=== PATIENT | male | born 1975 | race African-American/Black ===

== ENCOUNTER 2021-03-15 20:56 | Emergency (ER) | payer MEDICARE, MEDICAID, SELFPAY ==
--- NOTE | ~2021-03-15 | XR_ITS ---
EXAMINATION: XR HAND, LEFT CLINICAL INFORMATION: Left hand swelling and bruising. COMPARISON: None TECHNIQUE: PA, lateral, and oblique views of the left hand. FINDINGS: Mildly displaced, oblique fracture through the distal aspect of the 5th metacarpal. The fracture line contacts the dorsal aspect of the metacarpophalangeal articular surface. There is approximately 0.6 cm proximal displacement of the distal fracture fragment. No dislocation. Osteopenia. Mild joint space narrowing with tiny marginal osteophytes at the triscaphe and 1st carpometacarpal joints as well as scattered throughout the interphalangeal joints. No osseous erosion. XR/XR hand LT 2V IMPRESSION: Mildly displaced, oblique fracture through the 5th metacarpal head which contacts the metacarpophalangeal articular surface.
[2021-03-15 21:15] VITALS: BP 150/77; PULSE 88; RESP 17; TEMP 37.1; O2SAT 98; BMI 40.4
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
[2021-03-16] MEDS: Ibuprofen 800 MG TABLET PO (00:27)
[2021-03-16 01:06] VITALS: BP 138/91; PULSE 79; RESP 16; O2SAT 97
== END 2021-03-16 01:08 | disposition home or self-care (01) ==
PROVIDERS: Emergency Provider Student in an Organized Health Care Education/Training Program
DX: S62.307A Unspecified fracture of fifth metacarpal bone, left hand, initial encounter for closed fracture (principal); W23.1XXA Caught, crushed, jammed, or pinched between stationary objects, initial encounter; Y93.89 Activity, other specified; Y92.9 Unspecified place or not applicable; Y99.9 Unspecified external cause status
CPT/HCPCS: 29125; 29515; 73120; 99284

== ENCOUNTER → 2021-03-18 08:28 | Outpatient (BNVA) | payer MEDICARE, MEDICAID, SELFPAY | PROVIDERS: Visit Provider Physician Assistant | DX: S62.307A Unspecified fracture of fifth metacarpal bone, left hand, initial encounter for closed fracture (principal) | CPT/HCPCS: 99202 ==

== ENCOUNTER 2021-03-19 08:50 | Day surgery (SDC) | payer MEDICARE, MEDICAID, SELFPAY ==
--- NOTE | 2021-03-18 13:06 | P.CONAN_ITS ---
Documented by User: Radha Chowdhury NP 03/18/21 13:06 HPI - Anesthesia Eval Consult details Narrative: 45yo M for Left Closed vs open Reduction 5th finger metacarpal PMFSH Active Problems Active Problems: All Active Problems (Updated 03/18/21 @ 09:03 by Darin Luna PA-C) Fracture of fifth metacarpal bone of left hand (Acute) Past Medical History Medical History (Updated 03/19/21 @ 11:34 by Ray Fan MD) Asthma Morbid obesity Social History Social History (Updated 03/18/21 @ 08:39 by Boby Blanchard) Patient Tobacco Use Status: Never used Tobacco Substance Use Frequency: Occasionally Are you DNR?: No Advance Directives: No Advance Directives Information Provided: Yes Current occupational status: employed Current occupation: [employer] Meds Allergies Allergy/AdvReac Type Severity Reaction Status Date / Time No Known Allergies Allergy Verified 03/18/21 08:45 Exam Exam Date and Time: March 18, 2021 1306 Assessment and Plan Assessment Anesthesia Assessment: Chart Reviewed Documented by User: Ray Fan MD 03/19/21 11:35 PMFSH Past Medical History Medical History (Updated 03/19/21 @ 11:34 by Ray Fan MD) Asthma Morbid obesity Family History Family history of problems with anesthesia: No Surgical History History of Problems with Anesthesia: No Social History Social History (Updated 03/18/21 @ 08:39 by Boby Blanchard) Patient Tobacco Use Status: Never used Tobacco Substance Use Frequency: Occasionally Are you DNR?: No Advance Directives: No Advance Directives Information Provided: Yes Current occupational status: employed Current occupation: [employer] handed/[employer] Meds Allergies Allergy/AdvReac Type Severity Reaction Status Date / Time No Known Allergies Allergy Verified 03/18/21 08:45 Exam Airway Mallampati Class: III TM Dist: >3cm Neck ROM: Full Loose/Missing/Broken Teeth: Yes Assessment and Plan Assessment Anesthesia Assessment: Anesthesia Plan Discussed Final Anesthetic Review Family History of Problems with Anesthesia: No History of Problems with Anesthesia: No NPO: Yes ASA Class: III Final Preanesthetic Review: No Changes in Pt Med Stat, Meds/Allgs Chart Reviewed, Consent Obtained/Reviewed and Anes Risks/Benef Reviewed Patient Risk: High Procedure Risk: Low Anesthetic Plan Anesthetic Plan: GA Disposition: Standard PACU
[2021-03-19] VITALS (8 sets, daily range): BP systolic 126–158; BP diastolic 80–98; PULSE 86–93; RESP 16–20; TEMP 36.4–36.6; O2SAT 93–100; BMI 40.4
--- NOTE | ~2021-03-19 | FL_ITS ---
EXAMINATION: XR FLUOROSCOPY WITH IMAGES CLINICAL INFORMATION: Fracture. COMPARISON: Previous x-ray of the left hand 03/15/2021, TECHNIQUE: Fluoroscopy performed by Noreen Franco. Fluoroscopy time: 95 seconds DAP: [id number] uGycm2 Images: 10 FINDINGS: Fluoroscopy images demonstrate 2 K wires or pins across the left 5th MCP joint and across the 4th and 5th metacarpal heads. There is improved alignment of the displaced fracture of the left 5th metacarpal head. FL/FL guidance in OR IMPRESSION: Fluoroscopy guidance for ORIF of left 5th metacarpal fracture.
[2021-03-19] MEDS: Lactated Ringers 1,000 ML 100 ML IVCONT (09:40)
--- NOTE | 2021-03-19 10:09 | P.OP_ITS ---
Operative Note Operative Note Date of Service: 03/19/21 Narrative: Operative Note Narrative: Preop diagnosis: 1. left 5th Metacarpal head fracture Postop diagnosis: Same Procedure: 1. left 5th Metacarpal head fracture open reduction internal fixation 2. Ulnar nerve block Surgeon: Noreen Franco MD Anesthesia: General Findings: longitudinally oriented fracture through the left 5th metacarpal head and neck with proximal migration. Implants: 0.062 K-wires times Two Tourniquet time: None EBL: Minimal Specimen: None Drains: None Complications: None Disposition: Brought to the recovery room in stable condition Plan: Follow-up in 10-14 days for a wound check, postop radiographs and for placement in a short-arm Finger spica cast or splint Anticipate K-wire removal in 5 weeks based on interval bony healing Educate the patient that full fracture healing anticipated in approximately 8-12 weeks. Indications: The patient is 45 years old with left 5th metacarpal head fracture in the left upper extremity that has already sustained nerve injury and trauma to the ulnar aspect of the forearm from an old injury with incomplete use of the small finger. . The risks and benefits of operative treatment, including but not limited to risk of damage to blood vessels, nerves, tendons, infection, recurrence, delayed or nonunion of fracture, persistent pain or numbness, incomplete resolution of preoperative symptoms, or need for further surgery were discussed with the patient and they wished to proceed with surgery. Procedure: Once consent was obtained patient was brought back to the operating suite and placed in the operating table in a supine position. . Perioperative antibiotics and general anesthesia was administered by the anesthesia team. A tourniquet was applied to the proximal aspect of the left upper extremity and the limb was prepped and draped in a standard surgical fashion. the FluoroScan was used throughout our case to assess our fracture reduction and placement of all implants. We attempted a closed reduction, but were unable to mobilize the fracture to an appropriate position. We thus made the decision to proceed with an open reduction internal fixation. The limb was elevated and exsanguinated with an Esmarch bandage the tourniquet inflated to 250 mmHg for a total tourniquet time of 29 minutes. The FluoroScan was used during the case to assist with our fracture reduction and placement of all implants. A 2.5 cm Dorsal longitudinal incision was made over the distal aspect of the patient's left 5th metacarpal. The incision was made through the skin to the subcutaneous tissues using a 15. Blade. I then dissected down to the fracture site using tenotomy scissors and passing just radial to the extensor tendons to the small finger. [place] elevator was used to free up the longitudinal fracture which was passing through the 5th metacarpal head and neck. I placed a 0.062 K-wire retrograde through the head of the 5th metacarpal extending proximally To the fracture site. I then performed an open reduction of our fracture and advanced the K-wire retrograde across the fracture site and securing it through the ulnar cortex of the 5th metacarpal shaft. We had a near anatomic reduction with good compression at the fracture site.. I then passed a 0.045 K-wire transversely through the ulnar head of the 5th metacarpal, across the fracture site and into the head of the 4th metacarpal. Fracture alignment was assessed for both angular and rotational malalignment. Once satisfied with our fracture reduction and implant placement, the K-wires were bent and cut short and pin caps applied. Final fluoroscopic images were then obtained. The wounds were copiously irrigated with normal saline. An ulnar nerve block was then performed by infiltrating about the ulnar nerve at the wrist with some 1% lidocaine with epinephrine for postop pain control. A Sterile dressing and short arm volar splint was applied. The patient appears to have tolerated the procedure well and with no complications. All digits were well vascularized at the conclusion of the case.
--- NOTE | 2021-03-19 10:09 | MHC.SHP ---
Pre-Procedural Eval Section A Date of Service: 03/19/21 The patient is an INPATIENT: No Changes since office visit: No Cold of Flu in the past 2 weeks, No New Medical Problems, No Changes in Medication and No Patient answered all questions The History & Physical has been completed within 30 days and I have reviewed it.: Yes Section B Chief Complaint: fx of fifth metacarpal Allergies: Allergies Allergy/AdvReac Type Severity Reaction Status Date / Time No Known Allergies Allergy Verified 03/18/21 08:45 Plan I have reviewed the history and physical and performed a pertinent physical examination on my patient. No changes have occurred unless specified.
[2021-03-19] MEDS: oxyCODONE HCl Immed Release 5 MG TABLET PO (13:35)
[2021-03-19] MEDS: Ketorolac Tromethamine 30 MG/ML VIAL IVPUSH (13:35)
== END 2021-03-19 14:36 ==
LOC: HO.SSS 08:50
PROVIDERS: Visit Provider Orthopaedic Surgery
PROC: (CPT 26615; principal; 2021-03-19 10:40)
DX: S62.397A Other fracture of fifth metacarpal bone, left hand, initial encounter for closed fracture (principal); W23.0XXA Caught, crushed, jammed, or pinched between moving objects, initial encounter; Y93.9 Activity, unspecified; Y92.9 Unspecified place or not applicable; Y99.8 Other external cause status; J45.909 Unspecified asthma, uncomplicated
CPT/HCPCS: 26615 ×2; J0690; J1100; J1885; J2250; J2405; J3010

== ENCOUNTER 2021-03-30 08:50 | Outpatient (REF) | payer MEDICARE, MEDICAID, SELFPAY ==
--- NOTE | ~2021-03-30 | XR_ITS ---
EXAMINATION: XR HAND, LEFT CLINICAL INFORMATION: Pain in the left hand. COMPARISON: X-rays of the left hand 03/15/2021. Intraoperative imaging 03/19/2021 TECHNIQUE: 4 views of the left hand. FINDINGS: There are 2 pinsdistal 5th metacarpal where there is an oblique mildly displaced fracture. The distal pin appears more distally positioned when compared with the intraoperative images. There is perhaps slight improvement in alignment compared with the preoperative examination but unchanged compared with the intraoperative imaging. The distal fragment is mildly displaced radially approximately 3 mm. ADDITIONAL FINDINGS: Mild osteoarthritis of the 1st carpometacarpal joint and distal radioulnar joint manifested by marginal osteophytes. XR/XR hand LT min 3V IMPRESSION: 1. No change in the position of the fracture the distal 5th metacarpal when compared with intraoperative imaging obtained. 2. Of note the more distal pin appears MORE DISTALLY POSITIONED just distal to the level of fracture when compared with the intraoperative imaging. I'm not certain whether not this change in position occurred after the intraoperative imaging was performed or whether the pain has moved distally after surgery. Correlate with clinical presentation and surgical operative findings.
== END 2021-03-30 08:51 | disposition home or self-care (01) ==
LOC: HO.HOSX 08:50
PROVIDERS: Visit Provider Physician Assistant
DX: S62.307D Unspecified fracture of fifth metacarpal bone, left hand, subsequent encounter for fracture with routine healing (principal)
CPT/HCPCS: 29085; 73130; 99212

== ENCOUNTER 2021-04-08 08:37 | Outpatient (REF) | payer MEDICARE, MEDICAID, SELFPAY ==
--- NOTE | ~2021-04-08 | XR_ITS ---
EXAMINATION: XR HAND, LEFT CLINICAL INFORMATION: Pain in left hand. COMPARISON: Left hand radiographs 03/30/2021. TECHNIQUE: AP, oblique, lateral, repeat lateral, close cyst lateral radiographs of the left hand. FINDINGS: A mildly displaced oblique fracture of the fifth metatarsal carpal distal metadiaphysis with minimal radial angulation is identified with a single K wire spanning the heads of the fourth and fifth carpals. Mild subchondral sclerosis and joint space narrowing of the first carpometacarpal joint is again noted. Osteopenia of the fourth and fifth metacarpal rays is noted and may represent disuse osteopenia. The fracture lines associated with the fifth metacarpal fracture noted above remain distinct. XR/XR hand LT min 3V IMPRESSION: *Mildly displaced fracture of the distal fifth metacarpal with internal fixation unchanged in alignment compared with 03/30/2021. *Mild osteoarthritis of the first carpometacarpal joint.
== END 2021-04-08 08:38 | disposition home or self-care (01) ==
LOC: HO.HOSX 08:37
PROVIDERS: Visit Provider Orthopaedic Surgery
DX: S62.307D Unspecified fracture of fifth metacarpal bone, left hand, subsequent encounter for fracture with routine healing (principal)
CPT/HCPCS: 73130; 99212

== ENCOUNTER 2021-04-22 08:38 | Outpatient (REF) | payer MEDICARE, MEDICAID, SELFPAY ==
--- NOTE | ~2021-04-22 | XR_ITS ---
EXAMINATION: XR HAND, LEFT CLINICAL INFORMATION: Fracture fifth metacarpal. Follow-up. COMPARISON: Radiographs left hand 04/08/2021, 03/30/2021 TECHNIQUE: Left hand is imaged in 3 views. FINDINGS: The oblique fracture head and neck fifth metacarpal is reduced with orthopedic fixation pin. Hardware is intact. Fracture fragments are unchanged in alignment from prior study. Fracture line still visible. There is no destructive process. No dislocation. Remainder of bony structures are unremarkable. XR/XR hand LT min 3V IMPRESSION: No change in alignment. Hardware intact.
== END 2021-04-22 08:39 | disposition home or self-care (01) ==
LOC: HO.HOSX 08:38
PROVIDERS: Visit Provider Orthopaedic Surgery
DX: S62.307D Unspecified fracture of fifth metacarpal bone, left hand, subsequent encounter for fracture with routine healing (principal); T78.40XD Allergy, unspecified, subsequent encounter
CPT/HCPCS: 73130; 99212

== ENCOUNTER 2021-05-05 14:53 | Outpatient (REF) | payer MEDICARE, MEDICAID, SELFPAY ==
[2021-05-05 15:47] LABS: Binax Internal Control QC Valid; Binax Now Covid-19 Ag Negative (Negative)
== END 2021-05-05 14:54 | disposition home or self-care (01) ==
LOC: HO.LAB 14:53
PROVIDERS: Visit Provider Internal Medicine
DX: Z13.89 Encounter for screening for other disorder (principal)

== ENCOUNTER 2021-06-08 13:48 | Outpatient (RCR) | payer MEDICARE, MEDICAID, SELFPAY ==
--- NOTE | 2021-06-22 14:50 | MHC.OT.OD ---
[address] [phone] F: [phone] Occupational Therapy Daily Note Date of Evaluation: 06/08/21 Treatments to Date: 1 No Shows to Date: 3 Assessment: Prashanth was seen for OT evaluation (after missing his initially scheduled eval on 05/11/21). He has no-showed for two appointments since that time. He has follow up w/ Dr Franco tomorrow 06/23/21. We will allow one more visit next week and discharge if he does not attend. He has been educated on digit ROM w/ tendon glides as well as a desensitization program. 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 Pt to report <3/10 pain with functional use Financial Services Representative Strength >60lbs QuickDASH <40 Plan of Care: Cont POC to next week, if he has another no-show, we will discharge from services. Treatment Plan: Therapeutic Exercise Therapeutic Activity Home Exercise Program Splinting Neuro Re-ed Patient Education Desensitization/Sensory Re-ed Edema Control ADL Training Ultrasound Paraffin Fluidotherapy MHP Joint Mobilization Soft Tissue Mobilization Kinesiotaping Treatment Plan Comments: Electronically Signed By: Bonny Sarabia OT/s Reviewed/agree with student documentation: Yes Therapist: Charissa Zepeda OTR/L CHT
--- NOTE | 2021-07-23 08:27 | MHC.OT.DC ---
[address] [phone] F: [phone] Occupational Therapy Discharge Note Provider: Dr Franco Diagnosis: Left D5 MC F Date of Surgery: 03/19/21 Date of Evaluation: 06/08/21 Date of Discharge: 07/23/21 Treatments to Date: 1 No Shows to Date: 3 Discharge Status: Patient Elected to Stop Visit Non-compliance Discharge Summary: Prashanth was seen for OT evaluation and has not returned for therapy since. We will be discharging from services at this time. Electronically Signed By: SEGUNDO Garcia/Rere ERICKSON Reviewed/agree with student documentation: N/A Therapist: SEGUNDO Garcia/Rere ERICKSON Please Sign and return to therapist, thank you for your referral.
== END 2021-07-23 08:28 | disposition home or self-care (01) ==
LOC: HO.OT 13:48
PROVIDERS: Visit Provider Orthopaedic Surgery
DX: S62.307D Unspecified fracture of fifth metacarpal bone, left hand, subsequent encounter for fracture with routine healing (principal); T78.40XD Allergy, unspecified, subsequent encounter
CPT/HCPCS: 97110; 97166

== ENCOUNTER → 2021-06-23 15:30 | Outpatient (BNVA) | payer MEDICARE, MEDICAID, SELFPAY | PROVIDERS: Visit Provider Orthopaedic Surgery | DX: S62.307D Unspecified fracture of fifth metacarpal bone, left hand, subsequent encounter for fracture with routine healing (principal); R68.89 Other general symptoms and signs | CPT/HCPCS: 99212 ==

== ENCOUNTER 2022-05-26 14:08 | Outpatient (REF) | payer MEDICARE, MEDICAID, SELFPAY ==
--- NOTE | ~2022-05-26 | XR_ITS ---
EXAMINATION: XR HAND, LEFT CLINICAL INFORMATION: Pain left fifth metacarpal bone COMPARISON: Previous x-ray most recent April 2021 TECHNIQUE: PA, lateral, and oblique views of the left hand. FINDINGS: Old healed fracture of the neck of the fifth metacarpal bone. Orthopedic hardware has been removed. There is still osteopenia of the left fourth and fifth fingers. No acute fracture or dislocation. Normal joint spaces. Normal soft tissues. XR/XR hand LT min 3V IMPRESSION: Old healed fracture of the neck of the fifth metacarpal bone. Osteopenia of the fourth and fifth fingers.
--- NOTE | ~2022-05-26 | XR_ITS ---
EXAMINATION: BILATERAL KNEE X-RAY CLINICAL INFORMATION: Pain COMPARISON: None TECHNIQUE: 3 views of each knee FINDINGS: Bone alignment is normal. No fracture or dislocation. Normal joint spaces. No joint effusion. XR/XR knee RT 3V IMPRESSION: Normal knees.
--- NOTE | ~2022-05-26 | XR_ITS ---
EXAMINATION: BILATERAL KNEE X-RAY CLINICAL INFORMATION: Pain COMPARISON: None TECHNIQUE: 3 views of each knee FINDINGS: Bone alignment is normal. No fracture or dislocation. Normal joint spaces. No joint effusion. XR/XR knee LT 3V IMPRESSION: Normal knees.
== END 2022-05-26 14:09 | disposition home or self-care (01) ==
LOC: HO.XRAY 14:08
PROVIDERS: PCP General Practice; Visit Provider General Practice
DX: M17.0 Bilateral primary osteoarthritis of knee (principal); M79.642 Pain in left hand
CPT/HCPCS: 73130; 73562

== ENCOUNTER 2022-11-22 11:33 | Outpatient (REF) | payer MEDICARE, MEDICAID, SELFPAY ==
[2022-11-22 13:59] LABS: Estimated Average Glucose 117 mg/dL; Hemoglobin A1C 152.6476 umol/L; Hemoglobin A1c % 5.7 % (<6.0)
== END 2022-11-22 11:34 | disposition home or self-care (01) ==
LOC: HO.HHCL 11:33
PROVIDERS: Visit Provider General Practice
DX: E66.01 Morbid (severe) obesity due to excess calories (principal); R79.9 Abnormal finding of blood chemistry, unspecified; M79.10 Myalgia, unspecified site; T88.6XXA Anaphylactic reaction due to adverse effect of correct drug or medicament properly administered, initial encounter
CPT/HCPCS: 36415; 80053; 80061; 82552; 83036

== ENCOUNTER 2023-11-30 14:43 | Outpatient (REF) | payer MEDICARE, MEDICAID, SELFPAY ==
--- NOTE | ~2023-11-30 | XR_ITS ---
EXAMINATION: XR HAND, LEFT CLINICAL INFORMATION: Pain and swelling of the fifth finger. Hand pain. COMPARISON: Radiographs dated 04/22/2021. TECHNIQUE: PA, lateral, and oblique views of the left hand. FINDINGS: Bones are osteopenic at the ring and small fingers, potentially the results of prior trauma. Chronic regional pain syndrome is also on the differential. No residual fractures are identified in this region. There is a healed fracture at the fifth metacarpal shaft. Kgov-po-cglitywz osteoarthritis at the first CMC joint with nonuniform joint space narrowing and small marginal osteophytes. Minimal osteoarthritis in the MCP joints. Joints otherwise appear relatively well preserved. XR/XR hand LT min 3V IMPRESSION: 1. No acute fracture or malalignment. 2. Healed fifth metacarpal fracture. 3. Osteopenia at the ring and small fingers, is likely related to disuse from prior trauma. Chronic regional pain syndrome is also on the differential. 4. Wlnb-[id number]-aasygntn osteoarthritis at the first CMC joint. Electronically signed by: Christian Vargas MD 12/20/2023 10:45 PM EDT
--- NOTE | ~2023-11-30 | XR_ITS ---
EXAMINATION: XR RIBS, RIGHT CLINICAL INFORMATION: Right rib pain for 3 months, left hand pain and swelling fifth finger, patient had difficulty keeping still for images, body habitus hindered exam, best possible attempts per technologist. COMPARISON: None available. TECHNIQUE: 5 views of the right ribs. FINDINGS: There is no gross pneumothorax. Heart size is normal. No gross pleural effusion. No focal consolidation. No displaced rib fracture is appreciated, although visualization of the most inferior ribs is limited due to overlying bone and soft tissue. XR/XR ribs RT 2V IMPRESSION: No displaced rib fracture is appreciated, although visualization of the most inferior ribs is limited due to overlying bone and soft tissue. CT scan could be considered for better visualization. Electronically signed by: Elsa Martinez MD 12/21/2023 10:26 AM EDT
[2023-11-30 16:31] LABS: Rheumatoid Factor < 13.0 IU/mL (<15.0)
[2023-11-30 16:34] LABS: Alanine Aminotransferase 24 U/L (0-40); Albumin Level 4.4 g/dL (3.5-5.0); Alkaline Phosphatase 115 U/L (39-117); Anion Gap 12 (12-20); Aspartate Amino Transferase 18 U/L (5-37); Bilirubin Total 0.4 mg/dL (0.0-1.0); Blood Urea Nitrogen 13 mg/dL (9-16); Calcium 10.1 mg/dL (8.4-10.2); Carbon Dioxide 27 mmol/L (22-29); Chloride 103 mmol/L (96-108); Cholesterol 178 mg/dL (<200); Estimated Glomerular Filt Rate > 60; Glucose Random 93 mg/dL (60-115); HDL Cholesterol 36 mg/dL (>40); LDL Cholesterol Calculated 106 mg/dL (<100); Sodium 138 mmol/L (135-145); Triglycerides 181 mg/dL (<150)
[2023-11-30 16:53] LABS: Estimated Average Glucose 120 mg/dL; Hemoglobin A1c % 5.8 % (<6.0)
[2023-11-30 16:57] LABS: Erythrocyte Sedimentation Rate 10 MM/HR (0-15)
[2023-12-01 04:26] LABS: HIV AB/AG Nonreactive (Nonreactive); HIV Num 1 0.07 S/CO (0.00-0.99); ~HepC Num1 0.12 S/CO (0.00-0.79); ~Hepatitis C Antibody Nonreactive (Nonreactive)
[2023-12-05 13:10] LABS: Anti Nuclear Antibody Screen NEGATIVE (NEGATIVE)
[2023-12-06 19:44] LABS: RPR Rapid Plasma Reagin NON-REACTIVE (NON-REACTIVE)
== END 2023-11-30 14:44 | disposition home or self-care (01) ==
LOC: HO.HHCL 14:43
PROVIDERS: Visit Provider General Practice
DX: R07.81 Pleurodynia (principal); M79.642 Pain in left hand; E66.01 Morbid (severe) obesity due to excess calories; M25.50 Pain in unspecified joint; R79.9 Abnormal finding of blood chemistry, unspecified; Z11.3 Encounter for screening for infections with a predominantly sexual mode of transmission
CPT/HCPCS: 36415; 71100; 73130; 80053; 80061; 83036; 85652; 86038; 86431; 86592; 86803; 87389

== ENCOUNTER 2024-08-24 10:45 | Outpatient (REF) | payer MEDICARE, MEDICAID, SELFPAY ==
--- NOTE | ~2024-08-24 | XR_ITS ---
EXAMINATION: X-ray knee, bilaterally. CLINICAL INFORMATION: Pain and swelling. History of gout. TECHNIQUE: AP view in standing position both kidneys. Oblique, lateral views both knees. COMPARISON: May 26, 2022. FINDINGS: Mild joint space narrowing involving mostly the medial compartment of the right knee and to lesser extent the left knee. No acute cortical disruption or gross malalignment. No gross suprapatellar bursa joint effusion. Questionable sclerotic marginated 9 mm lucency in the medial aspect proximal metaphysis of the left tibia probably anteriorly based upon the lateral projection. XR/XR Knee Josiah 3V IMPRESSION: Mild medial compartment osteoarthrosis without acute fracture or dislocation. No gross suprapatellar bursa joint effusion Stable sclerotic marginated lucency, proximal metaphysis left tibia.. Electronically signed by: Luis Mauro MD 08/24/2024 12:51 PM EDT
--- OUTSIDE RECORDS SUMMARY | 2024-08-24 10:52 | XMS_ITS | Encounter Summary ---
Author Organization [employer] Address [address] 7[address] [place] [address] Care Team Providers Care Report Checker Name Role Phone Carolyne Alvarado MD Primary Care Provider [phone] Encounter Details Date Type Department Care Team ([facility] st Contact Info) Description 04/19/2024 Orders Only [facility] MED[facility]INE [address] [place], [place] [phone] Carolyne Alvarado MD [address] [place], [place] [phone] Social History Tobacco Use Types Packs/Day Years Used Date Smoking Tobacco: Never Smokeless Tobacco: Never Alcohol Use Standard Drinks/Week Comments Never 0 (1 standard drink = 0.6 oz pur e alcohol) Alcohol Answer Date Recorded Frequency of Alcohol Consumption Not on file 11/30/2023 Average Number of Drinks Not on file 024 Frequency of Binge Drinking Not on file 11/03 Score 0 11/30/2023 Depression Answer Date Recorded Patient Health Questionnaire-9 Score 21 11/30/2023 Patient Health Questionnaire-9 Score 21 11/30/2023 Last PHQ-9: Questionnaire Data Not on file 0 11/30/2023 Housing Stability Answer Date Recorded What is your housing situation today? I have kala méndez 11/30/[address] you li ve. Do you have problems with any of the following? Not on file 11/30/2023 Food Insecurity Answer Date Recorded Within the past 12 months, y ou worried that your food would run out before you got money to buy more: Never True 11/30/2023 Within the past 12 months,th e food you bought just didn't last and you didn't have enough money to get more: Never True Transportation Answer Date Recorded In the past 12 months, has l ack of transportation kept you from medical appts, meetings, work or from getting things needed for daily living? No 11/30/2023 Utilities Answer Date Recorded In the past 12 months, has t he electric, gas, oil or water company threatened to shut off services in your home? No 11/30/2023 Depression Answer Date Recorded Patient Health Questionnaire-2 Score 6 11/30/2023 Internet Access Answer Date Recorded Internet Access Q1 No 12/02/2023 Internet Access Q2 Not on file 12/02/2023 Sex and Gender Information Value Date Recorded Sex Assigned at Male 02/01/2022 10:14 AM EDT Legal Sex Male 10:14 AM EDT Gender Identity Male 02/01/2022 10:14 AM EDT Sexual Orientation Straight 02/01/2022 10 :14 AM EDT documented as of this encounter Plan of Treatment Upcoming Encounters Date Type Department Care Team (Late st Contact Info) Description 09/18/2024 9:30 AM EDT Clinical Support [facility] [address] [place] [phone] Georgia Díaz, SPIKE documented as of this encounter Visit Diagnoses Not on filedocumented in this encounter Additional Health Concerns Assessment Noted Time PHQ-9 Depression Total Score: 21 024 2:06 PM EDT documented as of this encounter Care Teams Report Checker Relationship Specialty Start Date End Date Carolyne Alvarado MD [address] [place] [address] PCP - General Family Medicine 12/03/19 documented as of this encounter
== END 2024-08-24 10:46 | disposition home or self-care (01) ==
LOC: HO.HHCX 10:45
PROVIDERS: Visit Provider General Practice
DX: M25.561 Pain in right knee (principal); M25.562 Pain in left knee
CPT/HCPCS: 73562

== ENCOUNTER → 2024-08-24 10:49 | Outpatient (BNV) | payer MEDICARE, MEDICAID, SELFPAY | PROVIDERS: Visit Provider Radiology Diagnostic Radiology | DX: M25.561 Pain in right knee (principal); M25.562 Pain in left knee; R22.43 Localized swelling, mass and lump, lower limb, bilateral | CPT/HCPCS: 73562 ==

== ENCOUNTER 2024-11-27 10:56 | Outpatient (REF) | payer MEDICARE, MEDICAID, SELFPAY ==
--- OUTSIDE RECORDS SUMMARY | 2024-11-27 10:15 | XMS_ITS | Encounter Summary ---
Author Organization [employer] Address [address] [facility] [address] [place] [address] Care Team Providers Care Dairy Nutrition Specialist Name Role Phone Carolyne Alvarado MD Primary Care Provider [phone] Reason for Visit * Reason Comments Follow-up Encounter Details Date Type Department Care Team ([facility] Contact Info) Description 11/27/2024 10:15 AM EDT Office Visit [facility] MEDICINE [address] [place], [place] [phone] Carolyne Alvarado MD [address] [place], [place] [phone] Vasovagal syncope (Primary Dx); Prediabetes; Anxiety disorder, unspecified type; Rib pain on right side Social History Tobacco Use Types Packs/Day Years Used Date Smoking Tobacco: Never Smokeless Tobacco: Never Alcohol Use Standard Drinks/Week Comments Never 0 (1 standard drink = 0.6 oz pur e alcohol) Alcohol Answer Date Recorded How often do you have a drink containing alcohol ? 1 08/24/2024 How many drinks containing a lcohol do you have on a typical day when you are drinking? 0 08/24/2024 How often do you have six or more drinks on one occasion? 0 08/24/2024 Depression Answer Date Recorded Patient Health Questionnaire-9 Score 11/27/2024 Patient Health Questionnaire-9 Score 11/27/2024 Last PHQ-9: Questionnaire Data Not on file 0 11/27/2024 Housing Stability Answer Date Recorded What is your housing situation today? I have housing today, but I am worried about losing housing in the future 08/16/[address] you li ve. Do you have problems with any of the following? Pests such as bugs, ants, or mice;Mold;Water leaks 08/16/2024 Food Insecurity Answer Date Recorded Within the [...] things needed for daily living? No 11/30/2023 Intimate Partner Violence Answer Date R ecorded Within the last year, have y ou been afraid of your partner or ex-partner? 2 08/24/2024 Within the last year, have y ou been humiliated or emotionally abused in other ways by your partner or ex-partner? 2 Within the last year, have y ou been kicked, hit, slapped, or otherwise physically hurt by your partner or ex-partner? 2 08/24/2024 Within the last year, have y ou been raped or forced to have any kind of sexual activity by your partner or ex-partner? 2 08/24/2024 Utilities Answer Date Recorded In the past 12 months, has t he electric, gas, oil or water company threatened to shut off services in your home? No 11/30/2023 Depression Answer Date Recorded Patient Health Questionnaire-2 Score 6 11/27/2024 Internet Access Answer Date Recorded Internet Access Q1 Yes 08/16/2024 Internet Access Q2 Not on file 08/16/2024 Sex and Gender Information Value Date Recorded Sex Assigned at Male 02/01/2022 10:14 AM EDT Legal Sex Male 10:14 AM EDT Gender Identity Male 02/01/2022 10:14 AM EDT Sexual Orientation Straight 02/01/2022 10 :14 AM EDT documented as of this encounter Last Filed Vital Signs Vital Sign Reading Time Taken Comments Blood Pressure 124/80 11/27/2024 10:31 AM EDT Pulse 85 11/27/2024 10:31 AM EDT Temperature 36.2 C (97.1 F) 11/27/2024 10:31 AM EDT Respiratory Rate 20 11/27/2024 10:31 AM EDT Oxygen Saturation - - Inhaled Oxygen Concentration - - Weight 153 kg (337 lb) 11/27/2024 10:31 AM EDT Height 180.3 cm (5' 11 ) 11/27/2024 10:31 AM EDT Body Mass Index 47 11/27/2024 10:31 AM EDT documented in this encounter Functional Status * Over the past 2 weeks, how often have you been bothered by any of the following problems? Question Answer Date of Assessment Author Patient Health Questionnaire -2 Score 6 11/27/2024 11:23 AM EDT Ana Maria Boothe MA * Little interest or pleasure in doing things Answer Date of Assessment Author Nearly every day 11/27/2024 11:23 AM BUTCHT Ana Maria Boothe MA * Feeling down, depressed, or hopeless Answer Date of Assessment Author Nearly every day 11/27/2024 11:23 AM Ana Maria Sahu MA * Trouble falling or staying asleep, or sleeping too much Answer Date of Assessment Author Nearly every day 11/27/2024 11:23 AM Ana Maria Sahu MA * Feeling tired or having little energy Answer Date of Assessment Author Nearly every day 11/27/2024 11:23 AM Ana Maria Sahu MA * Poor appetite or overeating Answer Date of Assessment Author Nearly every day 11/27/2024 11:23 AM Ana Maria Sahu MA * Feeling bad about yourself - or that you are a failure or have let yourself or your family down Answer Date of Assessment Author More than half the days 11/27/2024 11:23 AM Ana Maria Sahu MA * Trouble concentrating on things, such as reading the newspaper or watching television Answer Date of Assessment Author Nearly every day 11/27/2024 11:23 AM Ana Maria Sahu MA * Moving or speaking so slowly that other people could have noticed? Or the opposite - being so fidgety or restless that you have been moving around a lot more than usual. Answer Date of Assessment Author Nearly every day 11/27/2024 11:23 AM Ana Maria Sahu MA * Thoughts that you would be better off or hurting yourself in some way Answer Date of Assessment Author Not at all 11/27/2024 11:23 AM BUTCHT Ana Maria Boothe MA * Patient Health Questionnaire-9 Score Answer Date of Assessment Author 23 11/27/2024 11:23 AM BUTCHT Ana Maria Boothe MA * Over the last 2 weeks, how often have you been bothered by any of the following problems? Question Answer Date of Assessment Author Feeling nervous, anxious, or on edge 3 11/27/2024 11:23 AM EDT Ana Maria Boothe MA Not being able to stop or co ntrol worrying 3 11/27/2024 11:23 AM BUTCHT Ana Maria Boothe MA Worrying too much about diff erent things 3 11/27/2024 11:23 AM BUTCHT Ana Maria Boothe MA Trouble relaxing 3 11/27/2024 11:23 AM BUTCHT Ana Maria Boothe MA Being so restless that it is hard to sit still 3 11/27/2024 11:23 AM EDT Ana Maria Boothe MA Becoming easily annoyed or irritable 2 11/27/2024 11:23 AM BUTCHT Ana Maria Boothe MA Feeling afraid as if somethi ng awful might happen 3 11/27/2024 11:23 AM BUTCHT Ana Maria Boothe MA RADHA-7 Total Score 20 11/27/2024 11:23 AM Ana Maria Sahu MA documented as of this encounter Plan of Treatment Upcoming Encounters Date Type Department Care Team (Late st Contact Info) Description 12/17/2024 9:00 AM EDT Clinical Support [facility] MEDICINE [address] [place] [phone] Georgia Díaz, RN Scheduled Orders Name Type Priority Associated Diagnoses Orde r Schedule TSH W/Reflex to FT4 Lab Routine Vasovagal syncope Anxiety disorder, unspecified type Expected: 11/27/2024 (Approximate), Expires: 11/27/2025 CBC auto differential Lab Routine Vasovagal syncope Expected: 11/27/2024 (Approximate), Expires: 11/27/2025 Comprehensive Metabolic Panel Lab Routine Vasovagal syncope Expected: 11/27/2024 (Approximate), Expires: 11/27/2025 XR Ribs 2 Views Right Imaging Routine Rib pain on right side Expected: 11/27/2024, Expires: 11/27/2025 documented as of this encounter Procedures Procedure Name Priority Date/Time Associated Diagnosis Comments POCT GLYCATED HEMOGLOBIN, TOTAL Routine 11/27/2024 10:44 AM EDT Prediabetes POCT GLUCOSE Routine 11/27/2024 10:33 AM EDT Prediabetes documented in this encounter Results * (ABNORMAL) POCT HGB A1C (11/27/2024 10:44 AM EDT) Hemoglobin A1C 6.1(A) 4.0 - 5.7 % QC Media Lot # [id number] Lot# Expiration Date 426 Blood 11/27/2024 10:4 4 AM EDT Carolyne Alvarado MD POINT OF CARE TEST ENTER/EDIT ORDERABLES Final Result * POCT Glucose (11/27/2024 10:33 AM EDT) Glucose Blood, POC 185 60 - 200 mg/dL QC Media Lot # [id number] Lot# Expiration Date ,726 Blood Capillary blood specimen / Unknown 11/27/2024 10:33 AM EDT Carolyne Alvarado MD POINT OF CARE TEST ENTER/EDIT ORDERABLES Final Result documented in this encounter Visit Diagnoses Diagnosis Vasovagal syncope- Primary Syncope and collapse Prediabetes Other abnormal glucose Anxiety disorder, unspecified type Rib pain on right side documented in this encounter Additional Health Concerns Assessment Noted Time PHQ-9 Depression Total Score: 23 025 11:23 AM EDT documented as of this encounter Care Teams Dairy Nutrition Specialist Relationship Specialty Start Date End Date Carolyne Alvarado MD [address] [place] [address] PCP - General Family Medicine 12/03/19 documented as of this encounter
--- OUTSIDE RECORDS SUMMARY | 2024-11-27 11:50 | XMS_ITS | Encounter Summary ---
Author Organization [employer] Address [address] [facility] 7t [place] [address] Care Team Providers Care On Site Coordinator Name Role Phone Carolyne Alvarado MD Primary Care Provider [phone] Reason for Visit * Reason Comments Med Refill Encounter Details Date Type Department Care Team (Late st Contact Info) Description 11/15/2022 Refill [facility] [address] [place] [address] [phone] Carolyne Alvarado MD [address] [place] [phone] Mild persistent asthma without complication Social History Tobacco Use Types Packs/Day Years Used Date Smoking Tobacco: Never Smokeless Tobacco: Never Alcohol Use Standard Drinks/Week Comments Never 0 (1 standard drink = 0.6 oz pur e alcohol) PHQ-2 Answer Date Recorded Patient Health Questionnaire-2 Score 6 05/17/2022 Depression Answer Date Recorded Patient Health Questionnaire-9 Score 18 05/17/2022 Sex and Gender Information Value Date Recorded Sex Assigned at Male 02/01/2022 10:14 AM EDT Legal Sex Male 10:14 AM EDT Gender Identity Male 02/01/2022 10:14 AM EDT Sexual Orientation Straight 02/01/2022 10 :14 AM EDT documented as of this encounter Plan of Treatment Upcoming Encounters Date Type Department Care Team (Late Contact Info) Description 12/17/2024 9:00 AM EDT Clinical Support [facility] [address] [place] [address] [phone] Georgia Díaz RN documented as of this encounter Visit Diagnoses Diagnosis Mild persistent asthma without complication documented in this encounter Additional Health Concerns Assessment Noted Time PHQ-9 Depression Total Score: 18 023 11:05 AM EST documented as of this encounter Care Teams On Site Coordinator Relationship Specialty Start Date End Date Carolyne Alvarado MD [address] [place] [address] PCP - General Family Medicine 12/03/19 documented as of this encounter
--- OUTSIDE RECORDS SUMMARY | 2024-11-27 11:50 | XMS_ITS | Encounter Summary ---
Author Organization [employer] Address [address] [facility] 7t [place] [address] Care Team Providers Care Automotive Parts Counter Assistant Name Role Phone Carolyne Alvarado MD Primary Care Provider [phone] Encounter Details Date Type Department Care Team ([facility] st Contact Info) Description 04/19/2024 Orders Only [facility] MEDICINE [address] [place], [place] [phone] Carolyne Alvarado MD [address] [place], [place] [phone] Social History Tobacco Use Types Packs/Day Years [...] Description 12/17/2024 9:00 AM EDT Clinical Support [facility] MEDICINE [address] [place] [phone] Georgia Díaz, RN documented as of this encounter Visit Diagnoses Not on filedocumented in this encounter Additional Health Concerns Assessment Noted Time PHQ-9 Depression Total Score: 21 024 2:06 PM EDT documented as of this encounter Care Teams Automotive Parts Counter Assistant Relationship Specialty Start Date End Date Carolyne Alvarado MD [address] [place] [address] PCP - General Family Medicine 12/03/19 documented as of this encounter
--- OUTSIDE RECORDS SUMMARY | 2024-11-27 11:51 | XMS_ITS | Encounter Summary ---
Author Organization [employer] Address [address] [facility] 7t [place] [address] Care Team Providers Care Pharmacy Aide Name Role Phone Carolyne Alvarado MD Primary Care Provider [phone] Reason for Visit * Reason Onset Date Comments chart prep 11/23/2024 Encounter Details Date Type Department Care Team ([facility] st Contact Info) Description 11/23/2024 Telephone [facility] MEDICINE [address] [place], [place] [phone] Carolyne Alvarado MD [address] [place], [place] [phone] chart prep Social History Tobacco Use Types Packs/Day Years [...] Date Recorded Patient Health Questionnaire-9 Score 18 08/24/2024 Patient Health Questionnaire-9 Score 18 08/24/2024 Last PHQ-9: Questionnaire Data Not on file 0 08/24/2024 Housing Stability Answer Date Recorded What is [...] Date Recorded Patient Health Questionnaire-2 Score 6 08/24/2024 Internet Access Answer Date Recorded Internet Access Q1 Yes 08/16/2024 Internet Access Q2 Not on file 08/16/2024 Sex and Gender Information Value Date Recorded Sex Assigned at Male 02/01/2022 10:14 AM EDT Legal Sex Male 10:14 AM EDT Gender Identity Male 02/01/2022 10:14 AM EDT Sexual Orientation Straight 02/01/2022 10 :14 AM EDT documented as of this encounter Miscellaneous Notes * Telephone Encounter - Suzi Shay MA - 11/23/2024 2:33 PM EDT Chart Prep Labs: not applicable Images: done Referrals: complete Vaccines due: Covid, Flu, Hep B, and Zoster Screenings: colonoscopy Overdue care gaps: A1c, Glucose, SBIRT, PHQ-9, and RADHA-7 documented in this encounter Plan of Treatment Upcoming Encounters Date Type Department Care Team (Late st Contact Info) Description 12/17/2024 9:00 AM EDT Clinical Support [facility] MEDICINE [address] [place] [address] Georgia Díaz, RN documented as of this encounter Visit Diagnoses Not on filedocumented in this encounter Additional Health Concerns Assessment Noted Time PHQ-9 Depression Total Score: 18 025 10:39 AM EDT documented as of this encounter Care Teams Pharmacy Aide Relationship Specialty Start Date End Date Carolyne Alvarado MD [address] [place] [address] PCP - General Family Medicine 12/03/19 documented as of this encounter
--- OUTSIDE RECORDS SUMMARY | 2024-11-27 11:51 | XMS_ITS | Clinical Summary ---
Author Organization [employer] [facility] ity Address [address] [place] [address] Care Team Providers Care Mobile Sales Technician Name Role Phone Unavailable Primary Care Provider Unavailabl e Social History Tobacco Use Types Packs/Day Years Used Date Smoking Tobacco: Never Assessed Sex and Gender Information Value Date Recorded Sex Assigned at Not on file Legal Sex Male 4:33 AM EST Gender Identity Not on file Sexual Orientation Not on file Plan of Treatment Health Maintenance Due Date Last Done Comments DTaP,Tdap,and Td Vaccines (1 - Tdap) 1993 Hepatitis B Vaccines (1 of 3 - 19+ 3-dose series) 1993 COVID-19 Vaccine ( - 2023-2 5 season) 2023 Depression Screening 04/04/2024 Pneumococcal Vaccine: 50+ Ye ars (1 of 1 - PCV) 2024 Zoster Vaccines (1 of 2) 2024 Influenza Vaccine (#1) 2024 HIB Vaccines Aged Out No longer eligi ble based on patient's age to complete this topic HPV Vaccines Aged Out No longer eligi ble based on patient's age to complete this topic Hepatitis A Vaccines Aged Out No long er eligible based on patient's age to complete this topic IPV Vaccines Aged Out No longer eligi ble based on patient's age to complete this topic MMR Vaccines Aged Out No longer eligi ble based on patient's age to complete this topic Meningococcal ACWY Vaccine Aged Out N o longer eligible based on patient's age to complete this topic Meningococcal B Vaccine Aged Out No l onger eligible based on patient's age to complete this topic RSV Immunization Patients Un prema 20 months Aged Out No longer eligible b ased on patient's age to complete this topic Varicella Vaccines Aged Out No longer eligible based on patient's age to complete this topic Advance Directives Documents on File Type Date Recorded Patient Technology Training Associate Expl anation Health Care Decision (hx) 03/03/2019 AD VICTOR DIRECTIVE
--- OUTSIDE RECORDS SUMMARY | 2024-11-27 11:51 | XMS_ITS | Encounter Summary ---
Author Organization [employer] Address [address] [facility] 7t [place] [address] Care Team Providers Care Charge Operator Name Role Phone Carolyne Alvarado MD Primary Care Provider [phone] Encounter Details Date Type Department Care Team (Latest Contact Info) Description 10/03/2018 Abstract [facility] Dental, Provider, DDS Social History Tobacco Use Types Packs/Day Years [...] Description 12/17/2024 9:00 AM EDT Clinical Support [facility] MEDICINE [address] [place] [address] Georgia Díaz RN documented as of this encounter Visit Diagnoses Not on filedocumented in this encounter Care Teams Charge Operator Relationship Specialty Start Date End Date Carolyne Alvarado MD [address] [place] [address] PCP - General Family Medicine 12/03/19 documented as of this encounter
--- OUTSIDE RECORDS SUMMARY | 2024-11-27 11:51 | XMS_ITS | Encounter Summary ---
Author Organization [employer] Address [address] [facility] 7t [place] [address] Care Team Providers Care Supervisor Vendor Quality Name Role Phone Carolyne Alvarado MD Primary Care Provider [phone] Encounter Details Date Type Department Care Team (Late Contact Info) Description 10/13/2022 Orders Only [facility] [address] [place] [address] [phone] Carolyne Alvarado MD [address] [place] [address] [phone] Social History Tobacco Use Types Packs/Day Years [...] Description 12/17/2024 9:00 AM EDT Clinical Support [facility]INE [address] [place] [address] [phone] Georgia Díaz RN documented as of this encounter Visit Diagnoses Not on filedocumented in this encounter Additional Health Concerns Assessment Noted Time PHQ-9 Depression Total Score: 18 023 11:05 AM EST documented as of this encounter Care Teams Supervisor Vendor Quality Relationship Specialty Start Date End Date Carolyne Alvarado MD [address] [place] [address] PCP - General Family Medicine 12/03/19 documented as of this encounter
--- OUTSIDE RECORDS SUMMARY | 2024-11-27 11:51 | XMS_ITS | Clinical Summary ---
Author Organization [employer] Address [address] [facility] 7t [place] [address] Care Team Providers Care Combat Rifle Crewmember Name Role Phone Carolyne Alvarado MD Primary Care Provider [phone] Allergies No known active allergies Medications Sotyktu 6 MG tablet 09/09/19 23 Active naloxone (Narcan) 4 mg/0.1 mL nasal spray Administer 1 spray (4 mg) into affected nostril(s) if needed for opioid reversal. 2 each 2 01/23/20 24 Active albuterol 108 (90 Base) MCG/ACT inhaler Inhale 2 puffs every 6 (six) hours if needed for wheezing. 18 g 11 04/19/19 25 026 Active omeprazole (PriLOSEC) [address] capsule TAKE 1 CAPSULE BY MOUTH EVERY DAY BEFORE A MEAL 90 capsule 3 08/11/19 25 Active fluticasone (Flonase) 50 MCG/ACT nasal sprayIndicatio ns:Environment al and seasonal allergies Administer 1-2 sprays into each nostril Once per day. Shake gently. Before first use, prime pump. After use, clean tip and replace cap. 16 g 2 08/25/19 25 026 Active loratadine (Claritin) 10 MG tabletIndicati ons:Environmen shelbie and seasonal allergies Take 1 tablet (10 mg) by mouth Once per day. 90 tablet 3 08/25/19 25 026 Active cholecalcifero l (Vitamin D3) 25 MCG (1000 UT) tabletIndicati ons:Vitamin D deficiency Take 1 tablet (25 mcg) by mouth Once per day. 90 tablet 3 08/25/19 25 Active oxyCODONE-acet aminophen (Percocet) 5-325 MG tabletIndicati ons:Other chronic pain Take 1 tablet by mouth every 8 (eight) hours if needed for severe pain for up to 28 days. 84 tablet 11/20/19 25 025 Active betamethasone, augmented, (Diprolene) 0.05 % lotion APPLY TO EARS 2 TIMES DAILY NEEDED FOR UP TO 2 WEEKS 09/26/19 25 Active oxyCODONE-acet aminophen (Percocet) 5-325 MG tabletIndicati ons:Other chronic pain Take 1 tablet by mouth every 8 (eight) hours if needed for severe pain for up to 28 days. 84 tablet 10/19/19 25 025 Discontinued(Re order (will not trigger notification to Pharmacy)) Active Problems Problem Noted Date Diagnosed Date Prediabetes 08/24/2024 shelter (current) use of opiate analgesic 02/03 Overview (02/22/2024): Dx: Rx: Last PROCESSING ASSOCIATE agreement: Tier II (visit every 3 months) Additional considerations: Timeline: Polyarthralgia 12/01/2023 Depression, recurrent 11/30/2023 Left hand pain 11/30/2023 Bilateral anterior knee pain 11/22/2022 Assessment & Plan (11/22/2022 4:44 PM EDT): xrays 05/2022 read as normal Declines PT or ortho eval Recommend acupuncture clinic Melanocytic nevi of right upper limb, including shoulder 02/06/2020 Neoplasm of uncertain behavior of skin 0 Environmental and seasonal allergies 09/01/2017 Vitamin D deficiency 11/06/2014 Insomnia 07/03/2014 Assessment & Plan (11/22/2022 4:43 PM EDT): Recommended trial of OTC melatonin Mixed anxiety and depressive disorder 10/24/2012 Assessment & Plan (05/18/2022 2:05 PM EST): Continue working with medical marijuana practioner sri hampton keep me apprised of decision He is not taking Zoloft currently Does not want a therapist Allergic rhinitis 04/04/1959 Asthma 04/04/1959 Assessment & Plan (05/18/2022 2:04 PM EST): Not very active this winter Continue APRIL prn Gastroesophageal reflux disease 04/04/1959 Assessment & Plan (05/18/2022 2:04 PM EST): Continue PPI Morbid obesity 04/04/1959 Assessment & Plan (05/18/2022 2:05 PM EST): Encouraged weight loss surgery He is not ready to think about this Psoriasis 04/04/1959 Assessment & Plan (11/22/2022 4:45 PM EDT): Started on Sotyktu (TREY 2/TK inhibitor) Will check for CK or lipid elevations due to increasing pain complaints Assessment & Plan (05/18/2022 2:05 PM EST): Seeing Derm next week, to ask if he should have Embrel or other systemic biologic again Resolved Problems Problem Noted Date Diagnosed Date Resolved Date Screening examination for STI 12/01/2023 08/24/2024 Rib pain on right side 12/01/202308/24 Encounters Date Type Department Care Team Description 11/27/2024 10:15 AM EDT Office Visit [facility] [address] [place] [phone] Carolyne Alvarado MD Vasovagal syncope (Primary Dx); Prediabetes; Anxiety disorder, unspecified type; Rib pain on right side 11/27/2024 Travel 11/23/2024 Telephone [facility] [address] [place] [address] Carolyne Alvarado MD chart prep 11/19/2024 Refill [facility] [address] [place], [place] [phone] Carolyne Alvarado MD Other chronic pain 10/18/2024 Refill [facility] [address] [place], [place] [phone] Carolyne Alvarado MD Other chronic pain 09/18/2024 9:30 AM EDT Clinical Support [facility] [address] [place] [address] Georgia Díaz, RN shelter (current) use of opiate analgesic (Primary Dx) 09/18/2024 Refill [facility] [address] [place] [address] Georgia Díaz RN Other chronic pain 09/18/2024 Travel from Last 3 Months Immunizations Immunization Administration Dates Next Due Influenza injectable quadrivalent preservative f ree 01/03/2019,04/26/2018 Influenza, IIV3, injectable 03/18/2014, 1 Influenza, Split (incl. purified surface antigen ) 12/22/2012,04/14/2012 Moderna Covid-19 Vaccine 12+ 07/29/2020,07/02/19 21 Pneumococcal Conjugate PCV 20 11/30/2023 Pneumococcal Polysaccharide PPSV23 12/15/2006 TD (adult), 2 Lf tetanus tox oid, preservative free, adsorbed 07/03/2008 Tdap 12/12/2017 Social History Tobacco Use Types Packs/Day Years Used Date Smoking Tobacco: Never Smokeless Tobacco: Never Tobacco Cessation:Counseling Given: Not Answered Alcohol Use Standard Drinks/Week Comments Never 0 [...] Answer Date Recorded Patient Health Questionnaire-9 Score 23 11/27/2024 Patient Health Questionnaire-9 Score 23 11/27/2024 Last PHQ-9: Questionnaire Data Not on [...] the past 12 months, has t he [employer], gas, oil or water company threatened to [...] Orientation Straight 02/01/2022 10 :14 AM EDT Last Filed Vital Signs Vital Sign Reading Time Taken Comments Blood Pressure 124/80 11/27/2024 10:31 AM EDT Pulse 85 11/27/2024 10:31 AM EDT Temperature 36.2 C (97.1 F) 11/27/2024 10:31 AM EDT Respiratory Rate 20 11/27/2024 10:31 AM EDT Oxygen Saturation 96% 11/30/2023 2:00 PM EDT Inhaled Oxygen Concentration - - Weight 153 kg (337 lb) 11/27/2024 10:31 AM EDT Height 180.3 cm (5' 11 ) 11/27/2024 10:31 AM EDT Body Mass Index 47 11/27/2024 10:31 AM EDT Plan of Treatment Upcoming Encounters Date Type Department Care Team (Late st Contact Info) Description 12/17/2024 9:00 AM EDT Clinical Support [address] [id number] Georgia Díaz, RN Health Maintenance Due Date Last Done Comments CT Colonography 1974 Colonoscopy 1974 Colorectal Cancer Screening 1974 FIT DNA/Cologuard 1974 FIT 1974 FOBT 1974 Sigmoidoscopy 1974 Hepatitis B Vaccines (1 of 3 - 19+ 3-dose series) 1993 COVID-19 Vaccine ( season) 2023 07/29/2020, 07/01/2020 Zoster Vaccines (1 of 2) 2024 Alcohol/Substance Use Screening 11/29/2024 11/30/2023 Influenza Vaccine (#1) 2024 9, 04/26/2018, 03/18/2014, Additional history exists Depression Monitoring 02/24/2025 08/24/2024, 025 Diabetes: Hemoglobin A1C 02/27/2025 025, 08/24/2024, 11/30/2023, Additional history exists SDOH Screening 08/16/2025 08/16/2024 Disability Screening 08/24/2025 08/24/2024 Family Planning (PISQ) 08/24/2025 08/24/2024 Tobacco Screening 08/24/2025 08/24/2024 DTaP/Tdap/Td Vaccines (2 - Td or Tdap) 12/13/2027 12/12/2017, 07/03/2008 Lipid Panel 11/29/2028 11/30/2023, 10/11/2019 RSV Patients and Patients Aged 60 years or older (1 - 1-dose 75+ series) 2049 HIV Screening Completed 11/30/2023 Hepatitis C Screening Completed 11/30/2023 Pneumococcal Vaccine: 50+ Years Completed 11/30/2023, 12/15/2006 Derm Melanoma Skin Check Discontinued HIB Vaccines Aged Out No longer eligi [...] patient's age to complete this topic Meningococcal Vaccine Aged Out No opal leroy eligible based on patient's age to complete this topic RSV under 20 months Aged Out No longe r eligible based on patient's age to complete this topic Rotavirus Vaccines Aged Out No longer eligible based on patient's age to complete this topic Procedures Procedure Name Priority Date/Time Associated Diagnosis Comments POCT GLYCATED HEMOGLOBIN, TOTAL Routine 11/27/2024 10:44 AM EDT Prediabetes POCT GLUCOSE Routine 11/27/2024 10:33 AM EDT Prediabetes POCT ANTIONE-14 URINE DRUG SCREEN Routine 09/18/2024 10:01 AM EDT long 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 care 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 (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) use of opiate analgesic HEPATITIS C AB W/REFL TO HCV RNA, QN, PCR Routine 11/30/2023 2:44 PM EDT Screening examination for STI HIV 1/2 ANTIGEN/ANTIBODY, FOURTH GENERATION W/RFL Routine 11/30/2023 2:44 PM EDT Screening examination for STI LIPID PANEL, STANDARD Routine 11/30/2023 2:44 PM EDT Morbid obesity (CMS/HCC) from Last 3 Months or Most Recently Relevant to Health Maintenance Results * (ABNORMAL) POCT HGB A1C (11/27/2024 10:44 AM EDT) Hemoglobin A1C 6.1(A) 4.0 - 5.7 % QC Media Lot # [id number] Lot# Expiration Date Blood 11/27/2024 10:4 4 AM EDT Carolyne Alvarado MD POINT OF CARE TEST ENTER/EDIT ORDERABLES Final Result * POCT Glucose (11/27/2024 10:33 AM EDT) Pathologist [facility] Glucose Blood, POC 185 60 - 200 mg/dL QC Media Lot # [id number] Lot# Expiration Date Blood Capillary blood specimen / Unknown 11/27/2024 10:33 AM EDT Result [facility] Carolyne Alvarado MD POINT OF CARE TEST ENTER/EDIT ORDERABLES Final Result * POCT ANTIONE-14 Urine Drug Screen (09/18/2024 10:01 AM EDT) Pathologist [facility] THC Negative Cocaine Screen, Urine Negative Opiate Screen, Urine Negative Methamphetamine Screen Urine Negative Amphetamine Screen, Urine Negative Benzodiazepines Screen, Urine Negative Barbiturate Screen, Urine Negative Methadone Screen, Urine Negative Buprenophine Screen, Urine Negative TCA, Urine Negative MDMA Urine Negative ng/mL Oxycodone Screen, Urine Positive Phencyclidine (PCP), Urine Negative Propoxyphene, Urine Negative Fentanyl, Urine Negative Urine Urine specimen obtained by clean catch procedure / Unknown 09/18/2024 10:01 AM EDT Georgia Badillo RN - 09/18/2024 10:01 AM EDT UTOX cup Lot#[id number] Exp. 02/01/26 Internal Pass Control Result [facility] Carolyne Alvarado MD POINT OF CARE TEST ENTER/EDIT ORDERABLES Final Result * Hepatitis C Antibody with Reflex to HCV, RNA, Quantitative, Real-Time PCR (11/30/2023 2:44 PM EDT) Pathologist [facility] Hepatitis C Antibody Nonreactive Nonreactive [facility] Comment:Antibodies to HCV no t detected; does not exclude early acuteHCV infection. Blood Venous blood specimen / Unknown 11/30/2023 2:44 PM EDT 11/30/2023 4:04 PM EDT Result [facility] Carolyne Alvarado MD LAB BLOOD ORDERABLES Final Res ult Performing Organization Address [facility]/ZIP Co de Phone Number [facility] [address] [place] [address] [phone] * HIV-1/2 Antigen and Antibodies, Fourth Generation, with Reflexes (11/30/2023 2:44 PM EDT) HIV AB/AG Nonreactive Nonreactive [facility] Comment:HIV-1 p24 Ag and/or HIV-1/HIV-2 Ab not detected.A test result that is nonreactive does not exclude thepossibility of exposure to or infection with HIV-1 and/orHIV-2. Nonreactive results in this assay for individualswith prior exposure to HIV-1 and/or HIV-2 may be due toantigen and antibody levels that are below the limit ofdetection of this assay.The [employer] HIV Ag/Ab Combo assay result andsupplemental assay results should be interpreted inconjunction with the patient's clinical presentation,history and other laboratory results. If the results areinconsistent with clinical evidence, additional testing issuggested to confirm the result. Blood Venous blood specimen / Unknown 11/30/2023 2:44 PM EDT 11/30/2023 4:04 PM EDT us Carolyne Alvarado MD LAB BLOOD ORDERABLES Final Res ult Performing Organization Address [facility] Co de Phone Number [facility] [address] [place] [address] [phone] * (ABNORMAL) Lipid Panel, Standard (11/30/2023 2:44 PM EDT) Triglycerides 181(H) <150 mg/dL [facility] Comment:Desirable Triglyceri de: less than 150 mg/dLBorderline High Triglyceride 150-199 mg/dLHigh Triglyceride: 200-499 mg/dLVery High Triglyceride: greater than or equal to 5OO mg/dL Cholesterol 178 <200 mg/dL [facility] Comment:Desirable Cholestero l: less than 200 mg/dLBorderline High Cholesterol: 200-239 mg/dLHigh Cholesterol: greater than 239 mg/dL LDL Cholesterol Calculated 106(H) <100 mg/dL [facility] Comment:Desirable LDL: less than 100 mg/dLNear Optimal/Above Optimal LDL: 110- 129 mg/dLBorderline High LDL: 130-159 mg/dLHigh LDL: 160-189 mg/dLVery High LDL: greater than or equal to 190 mg/dL HDL Cholesterol 36(L) >40 mg/dL [facility] Comment:Desirable HDL: great er than 40 mg/dL Note: This HDL assay may give artificially low results in patients with liver disease. Blood Venous blood specimen / Unknown 11/30/2023 2:44 PM EDT 11/30/2023 4:04 PM EDT us Carolyne Alvarado MD LAB BLOOD ORDERABLES Final Res ult [facility] [address] [place] [address] [phone] from Last 3 Months or Most Recently Relevant to Health Maintenance Insurance MEDICARE [facility] Care Teams Combat Rifle Crewmember Relationship Specialty Start Date End Date Carolyne Alvarado MD [address] [place] [phone] PCP - General Family Medicine 12/03/19
--- OUTSIDE RECORDS SUMMARY | 2024-11-27 11:51 | XMS_ITS | Encounter Summary ---
Author Organization [employer] Address [address] [facility] 7t [place] [address] Care Team Providers Care Options Advisor Name Role Phone Carolyne Alvarado MD Primary Care Provider [phone] Encounter Details Date Type Department Care Team (Late Contact Info) Description 06/04/2022 Orders Only [facility] [address] [place] [phone] Carolyne Alvarado MD [address] [place] [phone] Low back pain at multiple sites (Primary Dx) Social History Tobacco Use Types Packs/Day Years [...] Orientation Straight 02/01/2022 10 :14 AM EDT COVID-19 Exposure Response Date Recorded In the last 10 days, have yo u been in contact with someone who was confirmed or suspected to have Coronavirus/COVID-19? No / Unsure 05/17/2022 10:52 AM EST documented as of this encounter Plan of Treatment Upcoming Encounters Date Type Department Care Team (Late Contact Info) Description 12/17/2024 9:00 AM EDT Clinical Support [facility] [address] [place] [phone] Georgia Díaz, RN documented as of this encounter Visit Diagnoses Diagnosis Low back pain at multiple sites- Primary documented in this encounter Additional Health Concerns Assessment Noted Time PHQ-9 Depression Total Score: 18 023 11:05 AM EST documented as of this encounter Care Teams Options Advisor Relationship Specialty Start Date End Date Carolyne Alvarado MD [address] [place] [address] PCP - General Family Medicine 12/03/19 documented as of this encounter
--- OUTSIDE RECORDS SUMMARY | 2024-11-27 11:51 | XMS_ITS | Encounter Summary ---
Author Organization [email or web address] Address [address] [facility] [address] 7[address] [place] [address] Care Team Providers Care Language Translator Name Role Phone aCrolyne Alvarado MD Primary Care Provider [phone] Encounter Details Date Type Department Care Team (Latest Contact Info) Description 11/27/2024 Travel Social History Tobacco Use Types Packs/Day Years [...] Questionnaire-9 Score 11/27/2024 Patient Health Questionnaire-9 Score 23 11/27/2024 [...] AM EDT documented as of this encounter Functional Status * Over the past 2 weeks, how often have you been bothered by any of the following problems? Question Answer Date of Assessment Author Patient Health Questionnaire -2 Score 6 11/27/2024 11:23 AM EDT Ana Maria Boothe MA * Little interest or pleasure in doing things Answer Date of Assessment Author Nearly every day 11/27/2024 11:23 AM EDT Ana Maria Boothe MA * Feeling down, depressed, or hopeless Answer Date of Assessment Author Nearly every day 11/27/2024 11:23 AM EDT Ana Maria Boothe MA * Trouble falling or staying asleep, or sleeping too much Answer Date of Assessment Author Nearly every day 11/27/2024 11:23 AM EDT Ana Maria Boothe MA * Feeling tired or having little [...] Author Not at all 11/27/2024 11:23 AM Ana Maria Sahu MA * Patient Health Questionnaire-9 Score Answer Date of Assessment Author 23 11/27/2024 11:23 AM Ana Maria Sahu MA * Over the last 2 weeks, how often have you been bothered by any of the following problems? Question Answer Date of Assessment Author Feeling nervous, anxious, or on edge 3 11/27/2024 11:23 AM Ana Maria aShu MA Not being able to stop or co ntrol worrying 3 11/27/2024 11:23 AM Ana Maria Sahu MA Worrying too much about diff erent things 3 11/27/2024 11:23 AM Ana Maria Sahu MA Trouble relaxing 3 11/27/2024 11:23 AM Ana Maria Sahu MA Being so restless that it is hard to sit still 3 11/27/2024 11:23 AM Ana Maria Sahu MA Becoming easily annoyed or irritable 2 11/27/2024 11:23 AM EDT Ana Maria Boothe MA Feeling afraid as if somethi ng awful might happen 3 11/27/2024 11:23 AM EDT Ana Maria Boothe MA RADHA-7 Total Score 20 11/27/2024 11:23 AM EDT Ana Maria Boothe MA documented as of this encounter Plan of Treatment Upcoming Encounters Date Type Department Care Team (Late st Contact Info) Description 12/17/2024 9:00 AM EDT Clinical Support [facility] [address] [place] [address] Georgia Díaz, RN documented as of this encounter Visit Diagnoses Not on filedocumented in this encounter Additional Health Concerns Assessment Noted Time PHQ-9 Depression Total Score: 23 025 11:23 AM EDT documented as of this encounter Care Teams Language Translator Relationship Specialty Start Date End Date Carolyne Alvarado MD [address] [place] [address] PCP - General Family Medicine 12/03/19 documented as of this encounter
--- OUTSIDE RECORDS SUMMARY | 2024-11-27 11:51 | XMS_ITS | Encounter Summary ---
Author Organization [employer] Address [address] [facility] 7t [place] [address] Care Team Providers Care Airconditioning Engineer Name Role Phone Carolyne Alvarado MD Primary Care Provider [phone] Reason for Visit * Reason Onset Date Comments FYI 12/02/2022 Encounter Details Date Type Department Care Team ([facility] st Contact Info) Description 12/02/2022 Telephone [facility] [address] [place], [place] [phone] Carolyne Alvarado MD [address] [place], [place] [phone] FY Social History Tobacco Use Types Packs/Day Years Used Date Smoking Tobacco: Never Smokeless Tobacco: Never Alcohol Use Standard Drinks/Week Comments Never 0 (1 standard drink = 0.6 oz pur e alcohol) PHQ-2 Answer Date Recorded Patient Health Questionnaire-2 Score 0 11/22/2022 Depression Answer Date Recorded Patient Health Questionnaire-9 Score 18 05/17/2022 Depression Answer Date Recorded Patient Health Questionnaire-2 Score 0 11/22/2022 Sex and Gender Information Value Date Recorded Sex Assigned at Male 02/01/2022 10:14 AM EDT Legal Sex Male 10:14 AM EDT Gender Identity Male 02/01/2022 10:14 AM EDT Sexual Orientation Straight 02/01/2022 10 :14 AM EDT documented as of this encounter Miscellaneous Notes * Telephone Encounter - Vicky Zane - 12/02/2022 9:33 AM EDT Tc from [facility] with [facility] chemistry labs advising PCP Creatine kinase could not be done due to specimen being hemolyzed. Any questions, contact Aolani at [phone] documented in this encounter Plan of Treatment Upcoming Encounters Date Type Department Care Team (Late st Contact Info) Description 12/17/2024 9:00 AM EDT Clinical Support [facility] [address] [place] [address] Georgia Díaz, RN documented as of this encounter Visit Diagnoses Not on filedocumented in this encounter Additional Health Concerns Assessment Noted Time PHQ-9 Depression Total Score: 18 023 11:05 AM EST documented as of this encounter Care Teams Airconditioning Engineer Relationship Specialty Start Date End Date Carolyne Alvarado MD [address] [place] [phone] PCP - General Family Medicine 12/03/19 documented as of this encounter
[2024-11-27 13:12] LABS: MANUAL DIFF FLAG NO
[2024-11-27 13:25] LABS: Hematocrit 44.9 % (42.0-52.0); Hemoglobin 14.7 g/dl (14.0-18.0); Imm Gran Abs Auto 0.01 X10*3/uL (0.00-0.03); Imm Gran Pct Auto 0.2 % (0.0-0.4); Lymphocytes Absolute Auto 1.6 X10*3/uL (1.2-4.9); Mean Corpuscular HGB Conc 32.7 g/dl (31.0-36.0); Mean Corpuscular Hemoglobin 27.9 pg (27.0-33.0); Mean Corpuscular Volume 85.2 fL (80.0-98.0); NRBC Abs Auto 0.000 X10*3/uL (0.0-0.012); NRBC Pct Auto 0.0 /100WBC (0.0-0.2); Platelet Count 230 X10*3/uL (160-400); Red Blood Count 5.27 X10*6/uL (4.60-5.80); White Blood Count 5.1 X10*3/uL (4.8-10.8)
[2024-11-27 13:49] LABS: Alanine Aminotransferase 33 U/L (0-40); Albumin Level 4.3 g/dL (3.5-5.0); Alkaline Phosphatase 117 U/L (39-117); Anion Gap 14 (12-20); Aspartate Amino Transferase 23 U/L (5-37); Blood Urea Nitrogen 13 mg/dL (9-16); Calcium 9.1 mg/dL (8.4-10.2); Carbon Dioxide 25 mmol/L (22-29); Chloride 105 mmol/L (96-108); Estimated Glomerular Filt Rate > 60; Potassium 4.0 mmol/L (3.3-5.1); Sodium 140 mmol/L (135-145); Total Protein 7.6 g/dL (6.5-8.0)
== END 2024-11-27 10:57 | disposition home or self-care (01) ==
LOC: HO.HHCL 10:56
PROVIDERS: PCP General Practice; Visit Provider General Practice
DX: R55 Syncope and collapse (principal); F41.9 Anxiety disorder, unspecified
CPT/HCPCS: 36415; 80053; 84443; 85025

== ENCOUNTER 2024-12-27 09:06 | Outpatient (AMB) | payer MEDICARE, MEDICAID, SELFPAY ==
--- NOTE | 2024-12-27 09:14 | A.OFFVIS_ITS ---
Vital Signs 12/27/24 09:15 Height 5 ft 11 in Weight 333 lb BMI 46.4 BP 138/86 Blood Pressure Location Lt brachial Position Sitting Respiration 18 Pulse 81 Pulse Source Pulse Oximeter Pulse Oximetry (%) 98 Oxygen Delivery Method Room Air Intake Visit Reasons: RIB PAIN ON RIGHT SIDE Allergies No Known Allergies Allergy (Verified 06/23/21 16:09) HPI Comments Details: Georgia is in my office 1st time today with complaints of pain in the knees. This patient was referred to my office to treat the pain in the chest, however he insisted on addressing the knee pain. He said chest pain on the right side is minor and does not bother him at all. Because of his pain he can not sleep normally can not do activities of daily living can not take care of himself can not function normally. He is working full-time. He receives topical medication and oral medications which helped his pain. In terms of tissue damage he describes his pain as pulsing throbbing pounding, stabbing lancinating, sharp cutting lacerating, pinching cramping crushing, hot burning scalding searing, tight squeezing tearing sensation. He had x-rays of the bilateral knees which was performed in [facility] results of the x-rays dictated as below. The patient never had physical therapy for his knees. He never had any injections. His past medical history significant for asthma, he had surgery on left arm and left hand long time ago, he denies smoking cigarettes admits drinking 4 beers weekend he takes 2 cups of coffee a day and he admits recreational drugs. 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 Review of Systems Const All systems reviewed & are unremarkable except as noted in HPI and below ENT Reports Normal hearing present Neuro Reports Normal hearing present, Denies Abnormal speech present, Denies confusion and Denies Sensory deficit (Neuro) Psych Denies confusion Physical Exam Vital Signs: Last Vital Signs Pulse 81 12/27/24 09:15 Resp 18 12/27/24 09:15 BP 138/86 12/27/24 09:15 Pulse Ox 98 12/27/24 09:15 Oxygen Delivery Method Room Air 12/27/24 09:15 BMI result Body Mass Index 46.4 Const General: no acute distress; No confusion Nutritional Appearance: obese morbidly obese Orientation/consciousness: patient oriented x3 and No confusion Eyes General: appearance normal, both eyes and all related structures Pupils: Equal, round and reactive pupils present EOM: EOMs intact bilaterally Neck Neck: Yes full ROM Chest Chest palpation & inspection: normal inspection of the chest Resp Effort & Inspection: normal respiratory effort, able to speak in complete sentences, normal respiratory pattern, no audible wheezes and no cough Cardio Jugular venous distension: no JVD GI Inspection: Yes normal to inspection Neuro General: patient oriented x3, gait normal and No confusion Cranial nerves: Yes CN's II-XII intact bilaterally, Yes Equal, round and reactive pupils present, Yes Normal hearing present and Yes Ability to bilaterally elevate shoulders present Speech: No Abnormal speech present Gait exam (Neuro): Normal gait present Motor exam (neuro): 5/5 motor strength present throughout Sensory Exam: No Sensory deficit (Neuro) Extrem Other: Good range of motion of bilateral knees, mild crepitus sensed with knee range of motion. Anterior posterior drawer is negative as well as contralateral lateral and medial ligaments are stable. No tenderness on palpation in the anterior ramos rface of the both knees. No swelling no redness. General: No pedal edema Psych Speech and movement: Normal speech and movement present Affect: normal affect Attitude: cooperative Thought process: Normal thought process present Thought content: Normal thought content present Insight: Good insight present (Psych) Judgement: Good judgement present (Psych) Results Reviewed Results Reviewed: X-ray knee, bilaterally. FINDINGS: Mild joint space narrowing involving mostly the medial compartment of the right knee and to lesser extent the left knee. No acute cortical disruption or gross malalignment. No gross suprapatellar bursa joint effusion. Questionable sclerotic marginated 9 mm lucency in the medial aspect proximal metaphysis of the left tibia probably anteriorly based upon the lateral projection. IMPRESSION: Mild medial compartment osteoarthrosis without acute fracture or dislocation. No gross suprapatellar bursa joint effusion Stable sclerotic marginated lucency, proximal metaphysis left tibia.. Assessment & Plan Assessment & Plan (1) Bilateral knee pain: Code(s): M25.561 - Pain in right knee; M25.562 - Pain in left knee Category: Medical (2) Osteoarthritis of knees, bilateral: Code(s): M17.0 - Bilateral primary osteoarthritis of knee Category: Medical Plan This patient was referred to this office with right chest problem however he did not want to discuss this problem he pointed to his bilateral knees as the source of his pain. I offered him today perform intra-articular knee steroid injections. Patient adamantly refused. I recommended him to go back to his primary care physician to receive topical and oral medications he was treating his condition before. Coding Level of Care Code New Pt Level 3 (51361) Diagnoses Bilateral knee pain M25.561; M25.562 Osteoarthritis of knees, bilateral M17.0
[2024-12-27 09:15] VITALS: BP 138/86; PULSE 81; RESP 18; O2SAT 98; BMI 46.4
--- OUTSIDE RECORDS SUMMARY | 2024-12-27 09:55 | XMS_ITS | Encounter Summary ---
Author Organization [employer] Address [address] [facility] [address] [place] [address] Care Team Providers Care Non Destructive Evaluation Specialist Name Role Phone Carolyne Alvarado MD Primary Care Provider [phone] Encounter Details Date Type Department Care Team (Late Contact Info) Description 10/13/2022 Orders Only [facility] MEDICINE [address] [place] [address] [phone] Carolyne Alvarado MD [address] [place] [address] [phone] Social History Tobacco Use Types Packs/Day Years [...] Care Team (Late st Contact Info) Description 01/01/2025 9:30 AM EDT Clinical Support [facility] [address] [place] [address] [phone] Georgia Díaz RN documented as of this encounter Visit Diagnoses Not on filedocumented in this encounter Additional Health Concerns Assessment Noted Time PHQ-9 Depression Total Score: 18 023 11:05 AM EST documented as of this encounter Care Teams Non Destructive Evaluation Specialist Relationship Specialty Start Date End Date Carolyne Alvarado MD [address] [place] [address] PCP - General Family Medicine 12/03/19 documented as of this encounter
--- OUTSIDE RECORDS SUMMARY | 2024-12-27 09:55 | XMS_ITS | Encounter Summary ---
Author Organization [employer] Address [address] [facility] [address] [place] [address] Care Team Providers Care Hat Checker Name Role Phone Carolyne Alvarado MD Primary Care Provider [phone] Encounter Details Date Type Department Care Team ([facility] st Contact Info) Description 04/19/2024 Orders Only [facility] MEDICINE [address] [place], [place] [phone] Carolyne Alvarado MD [address] [place], [place] [phone] Social History Tobacco Use Types Packs/Day Years [...] Description 01/01/2025 9:30 AM EDT Clinical Support [facility] [address] [place] [phone] Georgia Díaz, RN documented as of this encounter Visit Diagnoses Not on filedocumented in this encounter Additional Health Concerns Assessment Noted Time PHQ-9 Depression Total Score: 21 024 2:06 PM EDT documented as of this encounter Care Teams Hat Checker Relationship Specialty Start Date End Date Carolyne Alvarado MD [address] [place] [address] PCP - General Family Medicine 12/03/19 documented as of this encounter
--- OUTSIDE RECORDS SUMMARY | 2024-12-27 09:55 | XMS_ITS | Encounter Summary ---
Author Organization [employer] Address [address] [facility] [address] [place] [address] Care Team Providers Care Marketing And Development Coordinator Name Role Phone Carolyne Alvarado MD Primary Care Provider [phone] Encounter Details Date Type Department Care Team (Latest Contact Info) Description 10/03/2018 Abstract [facility] CONVERSIONS Dental, Provider, DDS Social History Tobacco [...] Description 01/01/2025 9:30 AM EDT Clinical Support [facility] MEDICINE [address] [place] [address] Georgia Díaz RN documented as of this encounter Visit Diagnoses Not on filedocumented in this encounter Care Teams Marketing And Development Coordinator Relationship Specialty Start Date End Date Carolyne Alvarado MD [address] [place] [address] PCP - General Family Medicine 12/03/19 documented as of this encounter
--- OUTSIDE RECORDS SUMMARY | 2024-12-27 09:55 | XMS_ITS | Encounter Summary ---
Author Organization [employer] Address [address] [facility] [address] [place] [address] Care Team Providers Care Pet House Sitter Name Role Phone Carolyne Alvarado MD Primary Care Provider [phone] Reason for Visit * Reason Comments Med Refill Encounter Details Date Type Department Care Team (Late st Contact Info) Description 11/15/2022 Refill [facility]ICINE [address] [place] [address] [phone] Carolyne Alvarado MD [address] [place] [address] [phone] Mild persistent asthma without complication Social History [...] Description 01/01/2025 9:30 AM EDT Clinical Support [facility] [address] [place] [address] [phone] Georgia Díaz RN documented as of this encounter Visit Diagnoses Diagnosis Mild persistent asthma without complication documented in this encounter Additional Health Concerns Assessment Noted Time PHQ-9 Depression Total Score: 18 023 11:05 AM EST documented as of this encounter Care Teams Pet House Sitter Relationship Specialty Start Date End Date Carolyne Alvarado MD [address] [place] [address] PCP - General Family Medicine 12/03/19 documented as of this encounter
--- OUTSIDE RECORDS SUMMARY | 2024-12-27 09:55 | XMS_ITS | Encounter Summary ---
Author Organization [employer] Address [address] [facility] [address] [place] [address] Care Team Providers Care Photocopying Equipment Mechanic Name Role Phone Carolyne Alvarado MD Primary Care Provider [phone] Reason for Visit * Reason Onset Date Comments FYI 12/02/2022 Encounter Details Date Type Department Care Team ([facility] st Contact Info) Description 12/02/2022 Telephone [facility] MEDICINE [address] [place], [place] [phone] Carolyne Alvarado MD [address] [place], [place] [phone] FY Social History Tobacco Use Types Packs/Day [...] 9:33 AM EDT Tc from [facility] with [facility] chemistry labs advising PCP Creatine kinase could not be done due to specimen being hemolyzed. Any questions, contact Aolani at [phone] documented in this encounter Plan of Treatment Upcoming Encounters Date Type Department Care Team (Late st Contact Info) Description 01/01/2025 9:30 AM EDT Clinical Support [facility] MEDICINE [address] [place] [address] Georgia Díaz, RN documented as of this encounter Visit Diagnoses Not on filedocumented in this encounter Additional Health Concerns Assessment Noted Time PHQ-9 Depression Total Score: 18 023 11:05 AM EST documented as of this encounter Care Teams Photocopying Equipment Mechanic Relationship Specialty Start Date End Date Carolyne Alvarado MD [address] [place] [phone] PCP - General Family Medicine 12/03/19 documented as of this encounter
--- OUTSIDE RECORDS SUMMARY | 2024-12-27 09:55 | XMS_ITS | Encounter Summary ---
Author Organization [employer] Address [address] [facility] [address] [place] [address] Care Team Providers Care Aluminum Pourer Name Role Phone Carolyne Alvarado MD Primary Care Provider [phone] Encounter Details Date Type Department Care Team (Late Contact Info) Description 06/04/2022 Orders Only [facility] MEDICINE [address] [place] [address] [phone] Carolyne Alvarado MD [address] [place] [address] [phone] Low back pain at multiple sites (Primary [...] Department Care Team (Late Contact Info) Description 01/01/2025 9:30 AM EDT Clinical Support [facility] MEDICINE [address] [place] [phone] Georgia Díaz, RN documented as of this encounter Visit Diagnoses Diagnosis Low back pain at multiple sites- Primary documented in this encounter Additional Health Concerns Assessment Noted Time PHQ-9 Depression Total Score: 18 023 11:05 AM EST documented as of this encounter Care Teams Aluminum Pourer Relationship Specialty Start Date End Date Carolyne Alvarado MD [address] [place] [id number] PCP - General Family Medicine 12/03/19 documented as of this encounter
--- OUTSIDE RECORDS SUMMARY | 2024-12-27 09:55 | XMS_ITS | Clinical Summary ---
Author Organization [employer] Address [address] [facility] [address] [place] [address] Care Team Providers Care Belt Weaver Name Role Phone Carolyne Alvarado MD Primary Care Provider [phone] Allergies No known active allergies Medications Sotyktu [...] day. 90 tablet 3 08/25/19 25 Active betamethasone, augmented, (Diprolene) 0.05 % lotionIndicati ons:Psoriasis APPLY TO EARS 2 TIMES DAILY NEEDED FOR UP TO 2 WEEKS 09/26/19 25 Active oxyCODONE-acet aminophen (Percocet) 5-325 MG tabletIndicati ons:Other chronic pain Take 1 tablet by mouth every 8 (eight) hours if needed for severe pain for up to 28 days. 84 tablet 12/22/19 25 025 Active oxyCODONE-acet aminophen (Percocet) 5-325 MG tabletIndicati ons:Other chronic pain Take 1 tablet by mouth every 8 (eight) hours if needed for severe pain for up to 28 days. 84 tablet 11/20/19 25 025 Discontinued(Re order (will not trigger notification to Pharmacy)) Active Problems Problem Noted Date Diagnosed Date Vasovagal syncope 11/28/2024 Prediabetes 08/24/2024 care home (current) use of opiate analgesic 02/03 Overview (11/28/2024): Dx: Bilateral knee OA Rx: Percocet 5/325mg every 8 hours Last SPRAY CEMENTER agreement: Tier II (visit every 3 months) Additional considerations: not particularly effective and pain steadily worsening Timeline: chronic consistent prescription > 5 years Rib pain on right side 12/01/2023 Polyarthralgia 12/01/2023 Depression, recurrent 11/30/2023 Left hand pain 11/30/2023 Bilateral anterior knee pain 11/22/2022 Assessment & Plan (11/22/2022 4:44 PM EDT): xrays 05/2022 read as normal Declines PT or ortho eval Recommend acupuncture clinic Melanocytic nevi of right upper limb, including shoulder 02/06/2020 Neoplasm of uncertain behavior of skin Environmental and seasonal allergies 09/01/2017 Vitamin D [...] Date Screening examination for STI 12/01/2023 08/24/2024 Encounters Date Type Department Care Team Description 12/21/2024 Refill [facility] [address] [place] [address] [phone] Carolyne Alvarado MD Other chronic pain 12/17/[address] [phone] Georgia Díaz RN Pt cancelled SPRAY CEMENTER Renewal today 11/28/2024 Telephone [facility] [address] [place] [phone] Vicenta Gaffney RN Results 11/27/2024 10:15 AM EDT Office Visit [address] [phone] Carolyne Alvarado MD Vasovagal syncope (Primary Dx); Prediabetes; Anxiety disorder, unspecified type; Rib pain on right side; Mild intermittent asthma without complication; Psoriasis; long term care administrator (current) use of opiate analgesic; Mixed anxiety and depressive disorder; Morbid obesity (CMS/HCC); Bilateral primary osteoarthritis of knee 11/27/2024 Travel 11/23/2024 Telephone [facility] [address] [place] [phone] Carolyne Alvarado MD chart prep 11/19/2024 Refill [facility] [address], [place] [phone] Carolyne Alvarado MD Other chronic pain 10/18/2024 Refill [facility] [address], [place] [phone] Carolyne Alvarado MD Other chronic pain from Last 3 Months Immunizations Immunization Administration [...] 9:30 AM EDT Clinical Support [facility] [address] [place] [address] Georgia Díaz, RN Health Maintenance Due Date Last Done Comments CT Colonography 1974 Colonoscopy 1974 Colorectal Cancer Screening 1974 FIT DNA/Cologuard 1974 FIT 1974 FOBT 1974 Sigmoidoscopy 1974 Hepatitis B Vaccines (1 of 3 - 19+ 3-dose series) 1993 Zoster Vaccines (1 of 2) 2024 COVID-19 Vaccine ( - 2024- season) 2024 07/29/2020, 07/01/2020 Influenza Vaccine (#1) 2024 9, 04/26/2018, 03/18/2014, Additional history exists Diabetes: Hemoglobin A1C 02/27/2025 025, 08/24/2024, 11/30/2023, Additional history exists Depression Monitoring 05/30/2025 11/27/2024, 025 SDOH Screening 08/16/2025 08/16/2024 Disability Screening 08/24/2025 08/24/2024 Family Planning (PISQ) 08/24/2025 08/24/2024 Alcohol/Substance Use Screening 11/27/2025 11/27/2024 Tobacco Screening 11/28/2025 11/28/2024 DTaP/Tdap/Td Vaccines (2 - Td or Tdap) [...] Procedure Name Priority Date/Time Associated Diagnosis Comments COMPREHENSIVE METABOLIC PANEL Routine 11/27/2024 11:00 AM EDT Vasovagal syncope CBC WITH AUTO DIFFERENTIAL Routine 11/27/2024 11:00 AM EDT Vasovagal syncope TSH W/REFLEX TO FT4 Routine 11/27/2024 1 1:00 AM EDT Vasovagal syncope Anxiety disorder, unspecified type POCT GLYCATED HEMOGLOBIN, TOTAL Routine 11/27/2024 10:44 AM EDT Prediabetes POCT GLUCOSE Routine 11/27/2024 10:33 AM EDT Prediabetes HEPATITIS C AB W/REFL TO HCV RNA, QN, PCR Routine 11/30/2023 2:44 PM EDT Screening examination for STI HIV 1/2 ANTIGEN/ANTIBODY, FOURTH GENERATION W/RFL Routine 11/30/2023 2:44 PM EDT Screening examination for STI LIPID PANEL, STANDARD Routine 11/30/2023 2:44 PM EDT Morbid obesity (CMS/HCC) from Last 3 Months or Most Recently Relevant to Health Maintenance Results * TSH W/Reflex to FT4 (11/27/2024 11:00 AM EDT) Pathologist [facility] TSH reflex Free T4 2.10 0.32 - 4.0 uIU/mL [facility] Blood Venous blood specimen / Unknown 11/27/2024 11:00 AM EDT 11/27/2024 1:08 PM EDT us Carolyne Alvarado MD LAB BLOOD ORDERABLES Final Res ult [facility] [address] [place] [phone] * CBC auto differential (11/27/2024 11:00 AM EDT) Pathologist [facility] White Blood Count 5.1 4.8 - 10.8 X10*3/uL [facility] Red Blood Count 5.27 4.60 - 5.80 X10*6/uL [facility] Hemoglobin 14.7 14.0 - 18.0 g/dl [facility] Hematocrit 44.9 42.0 - 52.0 % [facility] Mean Corpuscular Volume 85.2 80.0 - 98.0 fL [facility] Mean Corpuscular Hemoglobin 27.9 27.0 - 33.0 pg [facility] Mean Corpuscular HGB Conc 32.7 31.0 - 36.0 g/dl [facility] Red Cell Distribution Width 13.0 11.0 - 16.0 % [facility] Platelet Count 230 160 - 400 X10*3/uL [facility] Mean Platelet Volume 10.5 9.4 - 12.4 fL [facility] Neutrophils Percent Auto 55.3 45 - 73 % [facility] Imm Gran Pct Auto 0.2 0.0 - 0.4 % [facility] Lymphocytes Percent Auto 30.9 20 - 40 % [facility] Monocytes Percent Auto 9.1 2 - 11 % [facility] Eosinophils Percent Auto 3.9 0 - 4 % [facility] Basophils Percent Auto 0.6 0 - 2 % [facility] NRBC Pct Auto 0.0 0.0 - 0.2 /100WBC [facility] Neutrophils Absolute Auto 2.8 2.0 - 8.3 x10*3/uL [facility] Imm Gran Abs Auto 0.01 0.00 - 0.03 X10*3/uL [facility] Lymphocytes Absolute Auto 1.6 1.2 - 4.9 X10*3/uL [facility] Monocytes Absolute Auto 0.5 0.1 - 1.2 X10*3/uL [facility] Eosinophils Absolute Auto 0.2 0.0 - 0.4 X10*3/uL [facility] Basophils Absolute Auto 0.0 0.0 - 0.2 X10*3/uL [facility] NRBC Abs Auto 0.000 0.0 - 0.012 X10*3/uL [facility] Blood Venous blood specimen / Unknown 11/27/2024 11:00 AM EDT 11/27/2024 1:08 PM EDT us Carolyne Alvarado MD LAB BLOOD ORDERABLES Final Res ult [facility] [address] [place] [phone] * (ABNORMAL) Comprehensive Metabolic Panel (11/27/2024 11:00 AM EDT) Sodium 140 135 - 145 mmol/L [facility] Potassium 4.0 3.3 - 5.1 mmol/L [facility] Chloride 105 96 - 108 mmol/L [facility] Carbon Dioxide 25 22 - 29 mmol/L [facility] Anion Gap 14 12 - 20 [facility] Urea Nitrogen (BUN) 13 9 - 16 mg/dL [facility] Creatinine, Serum 0.94 0.5 - 1.4 mg/dL [facility] Estimated Glomerular Filt Rate >60 [facility] Comment:Chronic Kidney Disea se: Estimated GFR < 60 mL/min/1.73d5Arzucg Kidney Disease: Estimated GFR < 15 mL/min/1.73m2 Glucose 145(H) 60 - 115 mg/dL [facility] Calcium 9.1 8.4 - 10.2 mg/dL [facility] Bilirubin, Total 0.6 0.0 - 1.0 mg/dL [facility] Aspartate Amino Transferase 23 5 - 37 U/L [facility] Alanine Aminotransferase 33 0 - 40 U/L [facility] Total Protein 7.6 6.5 - 8.0 g/dL [facility] Albumin Level 4.3 3.5 - 5.0 g/dL [facility] Alkaline Phosphatase 117 39 - 117 U/L [facility] Blood Venous blood specimen / Unknown 11/27/2024 11:00 AM EDT 11/27/2024 1:08 PM EDT Carolyne Alvarado MD LAB BLOOD ORDERABLES Final Res ult [facility] [address] [place] [phone] * (ABNORMAL) POCT HGB A1C (11/27/2024 10:44 AM EDT) Hemoglobin A1C 6.1(A) 4.0 - 5.7 % QC Media Lot # [id number] Lot# Expiration Date 42 Blood 11/27/2024 10:4 4 AM EDT Carolyne Alvarado MD POINT OF CARE TEST ENTER/EDIT ORDERABLES Final Result * POCT Glucose (11/27/2024 10:33 AM EDT) Glucose Blood, POC 185 60 - 200 mg/dL QC Media Lot # [id number] Lot# Expiration Date 140 Blood Capillary blood specimen / Unknown 11/27/2024 10:33 AM EDT Carolyne Alvarado MD POINT OF CARE TEST ENTER/EDIT ORDERABLES Final Result * Hepatitis C Antibody with Reflex to HCV, RNA, Quantitative, Real-Time PCR (11/30/2023 2:44 PM EDT) Hepatitis C Antibody Nonreactive Nonreactive [facility] Comment:Antibodies to HCV no t detected; does not exclude early acuteHCV infection. Blood Venous blood specimen / Unknown 11/30/2023 2:44 PM EDT 11/30/2023 4:04 PM EDT Carolyne Alvarado MD LAB BLOOD ORDERABLES Final Res ult [facility] [address] [place] [phone] * HIV-1/2 Antigen and Antibodies, Fourth Generation, with Reflexes (11/30/2023 2:44 PM EDT) Pathologist [facility] HIV AB/AG Nonreactive Nonreactive [facility] Comment:HIV-1 p24 Ag and/or HIV-1/HIV-2 Ab not detected.A test result that is nonreactive does not exclude thepossibility of exposure to or infection with HIV-1 and/orHIV-2. Nonreactive results in this assay for individualswith prior exposure to HIV-1 and/or HIV-2 may be due toantigen and antibody levels that are below the limit ofdetection of this assay.[employer] HIV Ag/Ab Combo assay result andsupplemental assay results should be interpreted inconjunction with the patient's clinical presentation,history and other laboratory results. If the results areinconsistent with clinical evidence, additional testing issuggested to confirm the result. Blood Venous blood specimen / Unknown 11/30/2023 2:44 PM EDT 11/30/2023 4:04 PM EDT us Carolyne Alvarado MD LAB BLOOD ORDERABLES Final Res ult [facility] [address] [place] [phone] * (ABNORMAL) Lipid Panel, Standard (11/30/2023 2:44 PM EDT) Triglycerides 181(H) <150 mg/dL [facility] Comment:Desirable Triglyceri de: less than 150 mg/dLBorderline High Triglyceride 150-199 mg/dLHigh Triglyceride: 200-499 mg/dLVery High Triglyceride: greater than or equal to 5OO mg/dL Cholesterol 178 <200 mg/dL [facility] Comment:Desirable Cholestero l: less than 200 mg/dLBorderline High Cholesterol: 200-239 mg/dLHigh Cholesterol: greater than 239 mg/dL LDL Cholesterol Calculated 106(H) <100 mg/dL [facility] Comment:Desirable LDL: less than 100 mg/dLNear Optimal/Above Optimal LDL: 110- 129 mg/dLBorderline High LDL: 130-159 mg/dLHigh LDL: 160-189 mg/dLVery High LDL: greater than or equal to 190 mg/dL HDL Cholesterol 36(L) >40 mg/dL [facility] Comment:Desirable HDL: great er than 40 mg/dL Note: This HDL assay may give artificially low results in patients with liver disease. Blood Venous blood specimen / Unknown 11/30/2023 2:44 PM EDT 11/30/2023 4:04 PM EDT us Carolyne Alvarado MD LAB BLOOD ORDERABLES Final Res ult [facility] [address] [place] [phone] [phone] from Last 3 Months or Most Recently Relevant to Health Maintenance Insurance [facility]ICARE [facility] STANDARD Care Teams Belt Weaver Relationship Specialty Start Date End Date Carolyne Alvarado MD [address] [place] [phone] PCP - General Family Medicine 12/03/19
--- OUTSIDE RECORDS SUMMARY | 2024-12-27 09:55 | XMS_ITS | Clinical Summary ---
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
== END 2024-12-27 09:29 | disposition home or self-care (01) ==
PROVIDERS: PCP General Practice; Visit Provider Anesthesiology
DX: M25.561 Pain in right knee (principal); M25.562 Pain in left knee; M17.0 Bilateral primary osteoarthritis of knee
CPT/HCPCS: 99203

== ENCOUNTER → 2024-12-27 09:06 | Outpatient (BNVA) | payer MEDICARE, MEDICAID, SELFPAY | PROVIDERS: PCP General Practice; Visit Provider Anesthesiology | DX: M25.561 Pain in right knee (principal); M25.562 Pain in left knee; M17.0 Bilateral primary osteoarthritis of knee | CPT/HCPCS: 99202 ==

== ENCOUNTER 2025-01-09 09:03 | Outpatient (AMB) | payer MEDICARE, MEDICAID, SELFPAY ==
[2025-01-09 09:07] VITALS: BP 122/70; PULSE 81; BMI 47.1
--- NOTE | 2025-01-09 09:07 | MHC.OFFVIS ---
Vital Signs 01/09/25 09:07 Height 5 ft 11 in Weight 337 lb 11.971 oz BMI 47.1 BP 122/70 Blood Pressure Location Lt brachial Position Sitting Pulse 81 Intake Visit Reasons: colo screening Intake Note: New patient in office today for colonoscopy screening. CC: Patient denies having any GI symptoms or concerns today. Family Dentist Required: No Accompanied by: Self / Same As Patient Allergies No Known Allergies Allergy (Verified 01/09/25 09:13) HPI HPI colo screening: Details: 49-year-old male here for preprocedural meeting to discuss a screening colonoscopy. He is referred by [facility]. PMX Allergic rhinitis Asthma Morbid obesity Psoriasis Pre diabetes GERD Depression/insomnia/anxiety Hand and knee pain * SURGICAL HISTORY Arm surgery * ALLERGIES: NKDA * [facility]: Laboratory Tests 11/27/24 11:00 WBC 5.1 Hgb 14.7 Hct 44.9 Plt Count 230 Estimated GFR > 60 Total Bilirubin 0.6 AST 23 ALT 33 Alkaline Phosphatase 117 TSH 2.10 TODAY'S VISIT FIRST COLONOSCOPY:YES BOWEL OR UPPER GI PROBLEMS: GERD well controlled no bowel problems CARDIAC OR RESPIRATORY PROBLEMS: Asthma well controlled no cardiac problems PROBLEMS WITH ANESTHESIA OR SEDATION: No INFECTIOUS DISEASE PROBLEMS: No FAMILY HISTORY: No known family history of colon cancer or polyps [facility] Medical History (Updated 01/09/25 @ 09:24 by RONNY Bond) Morbid obesity Asthma Surgical History (Updated 01/09/25 @ 09:12 by GALEN Caicedo) History of surgery on arm Social History (Updated 01/09/25 @ 09:13 by GALEN Caicedo) Alcohol intake: current Alcohol intake frequency: a few times a month Comment: weekends Patient Tobacco Use Status: Never used Tobacco Use of substances other than those prescribed or required for medical reasons: Yes Substance Use Type: Marijuana Current occupational status: employed Current occupation: rt handed/[employer] Const Denies fatigue, Denies fever(s), Denies night sweats, Denies poor appetite and Denies weight loss Eyes Details: glasses Reports requires corrective lenses ENT Reports Normal hearing present, Denies dental pain, Denies dysphagia, Denies hearing loss, Denies mouth pain, Denies odynophagia, Denies throat swelling, Denies tongue swelling and Reports other (Dentition adequate) Card Reports no additional complaints Resp Reports no additional complaints GI Details: Denies abdominal pain, Denies melena, Denies bloating, Denies hematochezia, Denies constipation, Denies GI cramping, Denies dysphagia, Denies excessive flatus, Denies early satiety, Reports heartburn, Denies diarrhea, Denies nausea, Denies odynophagia, Denies vomiting and Denies hematemesis Skin/Breast Denies pruritus, Denies lesions, Denies rash and Denies jaundice Neuro Reports Normal hearing present and Denies Abnormal speech present Endo Denies fatigue Aller/Immun Denies throat swelling and Denies tongue swelling Physical Exam Vital Signs: Last Vital Signs Pulse 81 01/09/25 09:07 BP 122/70 01/09/25 09:07 BMI result Body Mass Index 47.1 Const General: cooperative, no acute distress, well developed and well groomed Nutritional Appearance: well nourished and obese morbidly obese Orientation/consciousness: oriented to person, oriented to place and oriented to time Limitations: No language barrier HEENT Head: Yes normocephalic and Yes atraumatic Eyes General: appearance normal, both eyes and all related structures Pupils: Equal, round and reactive pupils present Neck Neck: Yes normal visual inspection and Yes no lymphadenopathy Thyroid: Thyroid normal Resp Effort & Inspection: normal respiratory effort and able to speak in complete sentences Auscultation: clear to auscultation bilaterally Cardio Rate: regular rate Rhythm: regular rhythm Heart sounds: Normal, physiologic split S2 sound present Peripheral pulses: radial pulses present and posterior tibial pulses present GI Inspection: No distended, Yes Abdominal panniculus present and Yes obesity Palpation (GI): Soft to palpation, nontender, no guarding, not rigid and No hepatosplenomegaly present Percussion: Yes normal to percussion Auscultation: normal bowel sounds Rectal Exam - Male: Yes deferred Skin General skin exam: no rashes or lesions noted, turgor normal, skin not dry, no jaundice, No spider nevi and no striae Rashes: no rashes Nails: normal Neuro General: oriented to person, oriented to place and oriented to time Cranial nerves: Yes Equal, round and reactive pupils present and Yes Normal hearing present Speech: No Abnormal speech present Extrem Other: Large scar palmar side left arm General: Yes normal to inspection, No clubbing, No cyanosis and No edema Psych Appearance: grossly normal and well kempt Mental Status: mental status grossly normal Speech and movement: Normal speech and movement present Affect: normal affect Attitude: cooperative Thought process: Normal thought process present and not confabulating Thought content: Normal thought content present Insight: Good insight present (Psych) Judgement: Good judgement present (Psych) Assessment & Plan Assessment & Plan (1) Morbid obesity: Code(s): E66.01 - Morbid (severe) obesity due to excess calories Category: Medical (2) GERD (gastroesophageal reflux disease): Code(s): K21.9 - Gastro-esophageal reflux disease without esophagitis Category: Medical (3) Pre-op examination: Code(s): Z01.818 - Encounter for other preprocedural examination Category: Medical Plan FIRST COLONOSCOPY:YES BOWEL OR UPPER GI PROBLEMS: GERD well controlled no bowel problems CARDIAC OR RESPIRATORY PROBLEMS: Asthma well controlled no cardiac problems PROBLEMS WITH ANESTHESIA OR SEDATION: No INFECTIOUS DISEASE PROBLEMS: No FAMILY HISTORY: No known family history of colon cancer or polyps Orders: Referrals GI Procedure Notification E66.01 - Morbid (severe) obesity due to excess calories, K21.9 - Gastro-esophageal reflux disease without esophagitis, Z01.818 - Encounter for other preprocedural examination Medications: New sodium,potassium,mag sulfates 17.5-3.13-1.6 gram (Suprep Bowel Prep Kit) 480 mL orally; FOR COLONOSCOPY PREP 354 mL 0RF Coding Level of Care Code New Pt Level 3 (66827) Diagnoses Morbid obesity E66.01 GERD (gastroesophageal reflux disease) K21.9 Pre-op examination Z01.818
== END 2025-01-09 09:45 | disposition home or self-care (01) ==
LOC: HO.HGI 09:04
PROVIDERS: Visit Provider Nurse Practitioner
DX: Z01.818 Encounter for other preprocedural examination (principal); Z12.11 Encounter for screening for malignant neoplasm of colon; K21.9 Gastro-esophageal reflux disease without esophagitis; E66.01 Morbid (severe) obesity due to excess calories
CPT/HCPCS: 99024

== ENCOUNTER → 2025-01-09 09:03 | Outpatient (BNVA) | payer MEDICARE, MEDICAID, SELFPAY | PROVIDERS: Visit Provider Nurse Practitioner | DX: E66.01 Morbid (severe) obesity due to excess calories (principal); Z68.42 Body mass index [BMI] 45.0-49.9, adult; K21.9 Gastro-esophageal reflux disease without esophagitis; Z01.818 Encounter for other preprocedural examination; J45.909 Unspecified asthma, uncomplicated | CPT/HCPCS: 99212 ==